=== PATIENT | female | born 1935 | race Caucasian/White ===

== ENCOUNTER 2017-12-11 08:39 | Inpatient (IN) | payer MEDICARE ==
[~2017-12-11] VITALS: Ht 160 cm; Wt 100.0 kg
[~2017-12-11 08:39] MED LIST: ALEN70TA3 PO; CAR30T PO; COU5T PO; ERGO500014 PO; FLEC50TA MT; LEVO75TA57 PO; POTA10TA10 PO; ZOC40T PO
[2017-12-11] MEDS ORDERED: normal saline 1000ML IV soln IV ONE (09:05)
[2017-12-11] MEDS ORDERED: ondansetron/PF 4mg/2ml inj IV ONE (09:40)
[2017-12-11 09:56] LABS: BASOPHILS % (AUTO) 0.3 % (0-1); EOSINOPHILS % (AUTO) 0.3 % (0-6); HEMATOCRIT 39.9 % (35.0-45.0); HEMOGLOBIN 13.7 g/dl (12.0-16.0); LYMPHOCYTES # (AUTO) 0.7 X10'3 (1.1-4.8); LYMPHOCYTES % (AUTO) 5.5 % (21-51); MEAN CORPUSCULAR HEMOGLOBIN 33.3 PG (27.0-31.0); MEAN CORPUSCULAR HGB CONC 34.4 % (33.0-36.5); MEAN CORPUSCULAR VOLUME 96.7 FL (78-98); MEAN PLATELET VOLUME 9.8 FL (7.4-10.4); MONOCYTES # (AUTO) 0.6 X10'3 (0-0.9); MONOCYTES % (AUTO) 4.9 % (2-12); NEUTROPHILS # (AUTO) 10.6 X10'3 (1.8-7.7); PLATELET COUNT 172 X10'3 (140-440); RED BLOOD COUNT 4.12 X10'6 (4.20-5.60); RED CELL DISTRIBUTION WIDTH 13.4 % (11.5-14.5); WHITE BLOOD COUNT 11.9 X10'3 (4.5-11.0)
[2017-12-11] MEDS ORDERED: acetaminophen 325mg tablet PO ONE (10:05)
[2017-12-11 10:06] LABS: ALANINE AMINOTRANSFERASE 24 U/L (12-78); ALBUMIN 3.9 G/DL (3.4-5.0); ALBUMIN/GLOBULIN RATIO 1.2 (1.1-1.5); ALKALINE PHOSPHATASE 84 IU/L (46-116); ANION GAP 10 (8-16); ASPARTATE AMINO TRANSFERASE 23 U/L (10-37); BILIRUBIN,TOTAL 0.5 MG/DL (0.1-1.0); BLOOD UREA NITROGEN 25 MG/DL (7-18); BUN/CREATININE RATIO 20.8 (6.6-38.0); CALCIUM 8.9 MG/DL (8.5-10.1); CHLORIDE 105 MMOL/L (99-107); GLUCOSE 133 MG/DL (70-104); PARTIAL THROMBOPLASTIN TIME 24 SECONDS (22-32); SODIUM 142 MMOL/L (135-145); TOTAL CARBON DIOXIDE 26.9 MMOL/L (24-32); TOTAL PROTEIN 7.2 G/DL (6.4-8.2); eGFR 43 ML/MIN
[2017-12-11] MEDS ORDERED: metroNIDAZOLE-Flagyl 500mg/NS 100 ML IV STA (11:04)
[2017-12-11] MEDS ORDERED: ciprofloxacin lact 400MG/200ML 200 ML IV SCH (11:05)
[2017-12-11 12:04] LABS: CLARITY,URINE CLEAR (Clear); COLOR,URINE YELLOW (Yellow); GLUCOSE, URINE NEGATIVE (Neg); KETONES,URINE TRACE mg/dl (Neg); LEUKOCYTE ESTERASE ,URINE NEGATIVE (Neg); NITRITES, URINE NEGATIVE (Neg); OCCULT BLOOD,URINE LARGE (Neg); PROTEIN,URINE NEGATIVE (Neg); UROBILINOGEN,URINE 0.2 E.U/dL (0.2-1.0)
[2017-12-11 12:12] LABS: UA COLLECTION TYPE OTHER
[2017-12-11 12:17] LABS: AMORPHOUS URATES 1+; BACTERIA,URINE 1+ /HPF (Neg); SQUAMOUS EPITHELIAL CELL,UR FEW /LPF (FEW); WBC,URINE 0-4 /HPF (0-4)
[2017-12-11] MEDS ORDERED: magnesium 1gm/100ml D5W IVPB 100 ML IV PRN (12:25)
[2017-12-11] MEDS ORDERED: dextrose ORAL solution 15 GM/59 ML bottle PO PRN ×2 (12:25)
[2017-12-11] MEDS ORDERED: insulin Lispro (HumaLOG) vial - multi-dose SQ SCH (12:25)
[2017-12-11] MEDS ORDERED: glucagon, human recombinant 1mg kit SUBCUT PRN (12:25)
[2017-12-11] MEDS ORDERED: potassium Cl 20 mEq SR tablet PO PRN ×2 (12:25)
[2017-12-11] MEDS ORDERED: magnesium hydroxide 30ml (MOM) UD suspension PO PRN (12:25)
[2017-12-11] MEDS ORDERED: dextrose 50%-water 50ml dispensing syringe IV PRN ×2 (12:25)
[2017-12-11] MEDS ORDERED: mag hydrox/Alum hydrox/simeth 30ml oral suspension PO PRN (12:25)
[2017-12-11] MEDS ORDERED: potassium Cl 40MEQ/NS 500ml 500 ML IV PRN ×2 (12:25)
[2017-12-11] MEDS ORDERED: magnesium 4gm in 100ml NS 100 ML IV PRN (12:25)
[2017-12-11] MEDS ORDERED: acetaminophen 325mg tablet PO PRN (12:25)
[2017-12-11] MEDS ORDERED: MESSAGE TO PHARMACY PO ONE (12:25)
[2017-12-11 13:51] LABS: BASOPHILS % (AUTO) 0.4 % (0-1); EOSINOPHILS % (AUTO) 0.2 % (0-6); HEMATOCRIT 34.1 % (35.0-45.0); HEMOGLOBIN 11.4 g/dl (12.0-16.0); LYMPHOCYTES # (AUTO) 0.6 X10'3 (1.1-4.8); LYMPHOCYTES % (AUTO) 5.1 % (21-51); MEAN CORPUSCULAR HEMOGLOBIN 32.3 PG (27.0-31.0); MEAN CORPUSCULAR HGB CONC 33.5 % (33.0-36.5); MEAN CORPUSCULAR VOLUME 96.5 FL (78-98); MEAN PLATELET VOLUME 9.2 FL (7.4-10.4); MONOCYTES # (AUTO) 0.5 X10'3 (0-0.9); NEUTROPHILS # (AUTO) 10.5 X10'3 (1.8-7.7); NEUTROPHILS % (AUTO) 90.3 % (42-75); PLATELET COUNT 150 X10'3 (140-440); RED BLOOD COUNT 3.54 X10'6 (4.20-5.60); RED CELL DISTRIBUTION WIDTH 13.3 % (11.5-14.5); WHITE BLOOD COUNT 11.6 X10'3 (4.5-11.0)
[2017-12-11] MEDS: acetaminophen 325mg tablet PO PRN (14:50)
[2017-12-11] MEDS: normal saline 1000ml 1,000 ML IV SCH ×2 (15:01→23:51)
[2017-12-11 15:14] VITALS: BP 148/62
[2017-12-11] MEDS: metroNIDAZOLE-Flagyl 500mg/NS 100 ML IV SCH ×2 (16:54→23:51)
[2017-12-11] MEDS ORDERED: ASPI-1265 PO (17:29)
[2017-12-11] MEDS ORDERED: ATOR40TA PO (17:30)
[2017-12-11] MEDS ORDERED: LISI-600 PO (17:31)
[2017-12-11] MEDS ORDERED: AMIO200T40 PO (17:31)
[2017-12-11 19:30] VITALS: BP 145/47
[2017-12-11] MEDS ORDERED: ALENDRONATE SODIUM 70 MG PO SCH (20:00)
[2017-12-11] MEDS: ciprofloxacin/D5W 200mg/100mL 100 ML IV SCH (20:24)
[2017-12-11 20:47] LABS: BASOPHILS % (AUTO) 0.2 % (0-1); EOSINOPHILS # (AUTO) 0.1 X10'3 (0-0.9); EOSINOPHILS % (AUTO) 0.8 % (0-6); HEMATOCRIT 34.1 % (35.0-45.0); HEMOGLOBIN 11.6 g/dl (12.0-16.0); LYMPHOCYTES # (AUTO) 0.7 X10'3 (1.1-4.8); LYMPHOCYTES % (AUTO) 6.1 % (21-51); MEAN CORPUSCULAR HEMOGLOBIN 32.9 PG (27.0-31.0); MEAN CORPUSCULAR HGB CONC 34.1 % (33.0-36.5); MEAN CORPUSCULAR VOLUME 96.4 FL (78-98); MEAN PLATELET VOLUME 9.5 FL (7.4-10.4); MONOCYTES # (AUTO) 1.5 X10'3 (0-0.9); MONOCYTES % (AUTO) 13.9 % (2-12); NEUTROPHILS # (AUTO) 8.4 X10'3 (1.8-7.7); PLATELET COUNT 103 X10'3 (140-440); RED BLOOD COUNT 3.54 X10'6 (4.20-5.60); RED CELL DISTRIBUTION WIDTH 13.7 % (11.5-14.5); WHITE BLOOD COUNT 10.7 X10'3 (4.5-11.0)
[2017-12-11] MEDS: insulin glargine (Lantus) pen - multi-dose SQ SCH (21:00)
[2017-12-11] MEDS: traMADol 50MG tablet PO PRN (21:48)
[2017-12-11 23:30] VITALS: BP 139/51
[2017-12-12] MEDS: ondansetron/PF 4mg/2ml inj IV PRN ×3 (02:43→19:54)
[2017-12-12 06:33] LABS: BASOPHILS % (AUTO) 0 % (0-1); EOSINOPHILS % (AUTO) 0.3 % (0-6); HEMATOCRIT 33.2 % (35.0-45.0); HEMOGLOBIN 11.3 g/dl (12.0-16.0); LYMPHOCYTES # (AUTO) 0.6 X10'3 (1.1-4.8); LYMPHOCYTES % (AUTO) 5.6 % (21-51); MEAN CORPUSCULAR HEMOGLOBIN 32.7 PG (27.0-31.0); MEAN CORPUSCULAR VOLUME 96.3 FL (78-98); MEAN PLATELET VOLUME 9.8 FL (7.4-10.4); MONOCYTES # (AUTO) 0.8 X10'3 (0-0.9); MONOCYTES % (AUTO) 7.4 % (2-12); NEUTROPHILS # (AUTO) 9.5 X10'3 (1.8-7.7); NEUTROPHILS % (AUTO) 86.7 % (42-75); PLATELET COUNT 141 X10'3 (140-440); RED BLOOD COUNT 3.45 X10'6 (4.20-5.60); RED CELL DISTRIBUTION WIDTH 13.8 % (11.5-14.5); WHITE BLOOD COUNT 10.9 X10'3 (4.5-11.0)
[2017-12-12 07:05] LABS: ALANINE AMINOTRANSFERASE 12 U/L (12-78); ALBUMIN 2.8 G/DL (3.4-5.0); ALKALINE PHOSPHATASE 55 IU/L (46-116); ANION GAP 10 (8-16); ASPARTATE AMINO TRANSFERASE 18 U/L (10-37); BILIRUBIN,TOTAL 0.6 MG/DL (0.1-1.0); BLOOD UREA NITROGEN 13 MG/DL (7-18); BUN/CREATININE RATIO 15.1 (6.6-38.0); CALCIUM 7.9 MG/DL (8.5-10.1); CHLORIDE 109 MMOL/L (99-107); CHOL/HDL RATIO 1.7 (0.00-4.99); CHOLESTEROL 115 MG/DL (0-200); CREATININE 0.86 MG/DL (0.40-0.90); GLUCOSE 116 MG/DL (70-104); HDL CHOLESTEROL 66 MG/DL (35-60); LDL CHOLESTEROL 40 MG/DL (50-100); MAGNESIUM 1.8 MG/DL (1.5-2.4); POTASSIUM 3.8 MMOL/L (3.5-5.1); SODIUM 143 MMOL/L (135-145); TOTAL CARBON DIOXIDE 23.9 MMOL/L (24-32); TOTAL PROTEIN 5.6 G/DL (6.4-8.2); TRIGLYCERIDES 50 MG/DL (20-135); eGFR 63 ML/MIN
[2017-12-12 07:45] VITALS: BP 129/41
[2017-12-12] MEDS: K and/or MAG REPLACEMENT MC SCH (08:00)
[2017-12-12] MEDS: levoTHYROXINE 75mcg tablet PO SCH (08:13)
[2017-12-12] MEDS: atorvastatin 20mg tablet PO SCH (08:13)
[2017-12-12] MEDS: amiodarone 200mg tablet PO SCH (08:14)
[2017-12-12] MEDS: ciprofloxacin/D5W 200mg/100mL 100 ML IV SCH ×2 (08:14→19:54)
[2017-12-12] MEDS: lisinopril 20mg tablet PO SCH (08:14)
[2017-12-12] MEDS: traMADol 50MG tablet PO PRN (08:15)
[2017-12-12] MEDS: normal saline 1000ml 1,000 ML IV SCH ×2 (08:23→14:24)
[2017-12-12] MEDS: metroNIDAZOLE-Flagyl 500mg/NS 100 ML IV SCH ×3 (09:18→23:12)
[2017-12-12] MEDS ORDERED: proCHLORperazine 10 MG/2 ml inj IV PRN (10:05)
[2017-12-12 11:56] VITALS: BP 148/47
[2017-12-12] MEDS ORDERED: salt irrigation nasal spray 45 ML SPRAY NS PRN (15:40)
[2017-12-12] MEDS ORDERED: traMADol 50MG tablet PO PRN (15:40)
[2017-12-12 19:00] VITALS: BP 146/61
[2017-12-12] MEDS: NUT.TX.GLUC.INTOLER,LAC-FR,SOY (GLUCERNA) 237 ML PO SCH (19:54)
[2017-12-12] MEDS: insulin glargine (Lantus) pen - multi-dose SQ SCH (23:05)
[2017-12-12 23:23] VITALS: BP 156/8
[2017-12-13] MEDS: normal saline 1000ml 1,000 ML IV SCH (02:46)
[2017-12-13 05:43] LABS: BASOPHILS # (AUTO) 0.1 X10'3 (0-0.2); BASOPHILS % (AUTO) 0.5 % (0-1); EOSINOPHILS # (AUTO) 0.1 X10'3 (0-0.9); EOSINOPHILS % (AUTO) 0.9 % (0-6); HEMATOCRIT 31.5 % (35.0-45.0); HEMOGLOBIN 11.1 g/dl (12.0-16.0); LYMPHOCYTES # (AUTO) 1.1 X10'3 (1.1-4.8); LYMPHOCYTES % (AUTO) 9.7 % (21-51); MEAN CORPUSCULAR HEMOGLOBIN 33.7 PG (27.0-31.0); MEAN CORPUSCULAR HGB CONC 35.1 % (33.0-36.5); MEAN CORPUSCULAR VOLUME 96.1 FL (78-98); MEAN PLATELET VOLUME 9.6 FL (7.4-10.4); MONOCYTES # (AUTO) 0.9 X10'3 (0-0.9); MONOCYTES % (AUTO) 8.4 % (2-12); NEUTROPHILS # (AUTO) 8.6 X10'3 (1.8-7.7); NEUTROPHILS % (AUTO) 80.5 % (42-75); PLATELET COUNT 126 X10'3 (140-440); RED BLOOD COUNT 3.28 X10'6 (4.20-5.60); RED CELL DISTRIBUTION WIDTH 13.8 % (11.5-14.5); WHITE BLOOD COUNT 10.8 X10'3 (4.5-11.0)
[2017-12-13 06:03] LABS: ALANINE AMINOTRANSFERASE 13 U/L (12-78); ALBUMIN 2.7 G/DL (3.4-5.0); ALBUMIN/GLOBULIN RATIO 0.9 (1.1-1.5); ALKALINE PHOSPHATASE 56 IU/L (46-116); ANION GAP 8 (8-16); ASPARTATE AMINO TRANSFERASE 16 U/L (10-37); BILIRUBIN,TOTAL 0.6 MG/DL (0.1-1.0); BLOOD UREA NITROGEN 8 MG/DL (7-18); BUN/CREATININE RATIO 9.1 (6.6-38.0); CALCIUM 8.3 MG/DL (8.5-10.1); CHLORIDE 108 MMOL/L (99-107); CREATININE 0.88 MG/DL (0.40-0.90); GLUCOSE 110 MG/DL (70-104); MAGNESIUM 1.8 MG/DL (1.5-2.4); POTASSIUM 3.6 MMOL/L (3.5-5.1); SODIUM 141 MMOL/L (135-145); TOTAL PROTEIN 5.6 G/DL (6.4-8.2); eGFR 61 ML/MIN
[2017-12-13 07:23] VITALS: BP 127/53
[2017-12-13] MEDS: K and/or MAG REPLACEMENT MC SCH (07:44)
[2017-12-13] MEDS: ciprofloxacin/D5W 200mg/100mL 100 ML IV SCH (07:53)
[2017-12-13] MEDS: metroNIDAZOLE-Flagyl 500mg/NS 100 ML IV SCH (07:53)
[2017-12-13] MEDS: amiodarone 200mg tablet PO SCH (07:54)
[2017-12-13] MEDS: levoTHYROXINE 75mcg tablet PO SCH (07:55)
[2017-12-13] MEDS: lisinopril 20mg tablet PO SCH (07:57)
[2017-12-13] MEDS: atorvastatin 20mg tablet PO SCH (07:57)
[2017-12-13] MEDS ORDERED: fluticasone nasal spray 16GM bottle NS SCH (08:00)
[2017-12-13] MEDS: NUT.TX.GLUC.INTOLER,LAC-FR,SOY (GLUCERNA) 237 ML PO SCH (08:00)
[2017-12-13] MEDS: acetaminophen 325mg tablet PO PRN (09:30)
[2017-12-13] MEDS ORDERED: CIPR-230 PO (11:24)
[2017-12-13] MEDS ORDERED: TRAM50TA2 PO (11:24)
[2017-12-13] MEDS ORDERED: METR500T PO (11:24)
[2017-12-13] MEDS ORDERED: ONDA4TAB12 PO (11:24)
[2017-12-17 09:43] LABS: OCCULT BLOOD STOOL POSITIVE (Neg)
== END 2017-12-13 12:56 | disposition home or self-care (01) | DRG 392 ==
LOC: ER 08:40 → ED HOLD 12:23 → SUR 3N 14:31
PROVIDERS: ADMIT Family Medicine; ATTEND Family Medicine
DX: A09 Infectious gastroenteritis and colitis, unspecified (principal); D68.69 Other thrombophilia; E87.6 Hypokalemia; E03.9 Hypothyroidism, unspecified; I48.91 Unspecified atrial fibrillation; E11.9 Type 2 diabetes mellitus without complications; E78.00 Pure hypercholesterolemia, unspecified; E78.5 Hyperlipidemia, unspecified; I10 Essential (primary) hypertension; I25.10 Atherosclerotic heart disease of native coronary artery without angina pectoris; N26.1 Atrophy of kidney (terminal); Z90.49 Acquired absence of other specified parts of digestive tract; Z90.710 Acquired absence of both cervix and uterus; Z93.3 Colostomy status; Z95.2 Presence of prosthetic heart valve; Z95.5 Presence of coronary angioplasty implant and graft; Z88.5 Allergy status to narcotic agent; Z79.899 Other long term (current) drug therapy; Z79.83 Long term (current) use of bisphosphonates; Z79.82 Long term (current) use of aspirin; Z85.51 Personal history of malignant neoplasm of bladder; Z80.8 Family history of malignant neoplasm of other organs or systems; Z82.5 Family history of asthma and other chronic lower respiratory diseases
CPT/HCPCS: 36415; 71045; 74176; 80053; 80061; 81001; 82272; 82948; 83036; 83735; 84443; 85025; 85610; 85730; 86885; 86900; 86901; 87070; 93005; 93306; 96361; 96365; 96375; 99285; J0744; J0780; J1815; J2405; J3490; J7030

== ENCOUNTER 2019-01-28 11:01 | Emergency (ER) | payer MEDICARE ==
[~2019-01-28] VITALS: Ht 162.6 cm; Wt 90.0 kg
[~2019-01-28 11:01] MED LIST changes: +AMIO200T61 PO; +ASPI-1265 PO; +ATOR40TA PO; -CAR30T PO; -COU5T PO; -FLEC50TA MT; +LISI-600 PO; +ONDA4TAB12 PO; -POTA10TA10 PO; +TRAM50TA2 PO; -ZOC40T PO
[2019-01-28] MEDS: diatr meglu/diatrizoate 30ml oral sol.-(3 dose) bottle PO SCH ×3 (11:35→13:05)
[2019-01-28] MEDS ORDERED: normal saline 1000ML IV soln IVB ONE ×2 (11:35→13:30)
[2019-01-28] MEDS ORDERED: ondansetron/PF 4mg/2ml inj IV ONE (11:35)
[2019-01-28] MEDS: morphine 4 MG/ML inj SYRINge IV PRN ×2 (11:58→12:30)
[2019-01-28 12:01] LABS: BASOPHILS # (AUTO) 0.1 X10'3 (0-0.2); BASOPHILS % (AUTO) 0.9 % (0-1); EOSINOPHILS # (AUTO) 0.1 X10'3 (0-0.9); EOSINOPHILS % (AUTO) 1.2 % (0-6); HEMOGLOBIN 13.9 g/dl (12.0-16.0); LYMPHOCYTES # (AUTO) 1.1 X10'3 (1.1-4.8); LYMPHOCYTES % (AUTO) 16.8 % (21-51); MEAN CORPUSCULAR HEMOGLOBIN 32.9 PG (27.0-31.0); MEAN CORPUSCULAR HGB CONC 33.9 g/dL (33.0-36.5); MEAN PLATELET VOLUME 8.8 FL (7.4-10.4); MONOCYTES # (AUTO) 0.6 X10'3 (0-0.9); MONOCYTES % (AUTO) 8.8 % (2-12); NEUTROPHILS # (AUTO) 4.7 X10'3 (1.8-7.7); NEUTROPHILS % (AUTO) 72.3 % (42-75); PLATELET COUNT 195 X10'3 (140-440); RED BLOOD COUNT 4.23 X10'6 (4.20-5.60); RED CELL DISTRIBUTION WIDTH 14.3 % (11.5-14.5); WHITE BLOOD COUNT 6.5 X10'3 (4.5-11.0)
[2019-01-28 12:17] LABS: ALANINE AMINOTRANSFERASE 22 U/L (12-78); ALBUMIN 4.2 G/DL (3.4-5.0); ALBUMIN/GLOBULIN RATIO 1.2 (1.1-1.5); ALKALINE PHOSPHATASE 84 IU/L (46-116); ANION GAP 10 (8-16); ASPARTATE AMINO TRANSFERASE 20 U/L (10-37); BILIRUBIN,TOTAL 0.5 MG/DL (0.1-1.0); BLOOD UREA NITROGEN 13 MG/DL (7-18); BUN/CREATININE RATIO 12.4 (6.6-38.0); CALCIUM 9.4 MG/DL (8.5-10.1); CHLORIDE 103 MMOL/L (99-107); CREATININE 1.05 MG/DL (0.40-0.90); GLUCOSE 138 MG/DL (70-104); POTASSIUM 4.3 MMOL/L (3.5-5.1); SODIUM 139 MMOL/L (135-145); TOTAL CARBON DIOXIDE 26.5 MMOL/L (24-32); TOTAL PROTEIN 7.8 G/DL (6.4-8.2); eGFR 50 ML/MIN
[2019-01-28] MEDS ORDERED: iohexol 300mg/ml 100ml inj. ONE (12:26)
--- NOTE | 2019-01-28 13:20 | NUR ---
Patient back from CT scan via wheelchair.
[2019-01-28 13:36] LABS: CLARITY,URINE CLEAR (Clear); COLOR,URINE YELLOW (Yellow); GLUCOSE, URINE NEGATIVE (Neg); KETONES,URINE NEGATIVE (Neg); LEUKOCYTE ESTERASE ,URINE MODERATE (Neg); NITRITES, URINE NEGATIVE (Neg); OCCULT BLOOD,URINE LARGE (Neg); PROTEIN,URINE NEGATIVE (Neg); UROBILINOGEN,URINE 0.2 E.U/dL (0.2-1.0)
[2019-01-28 13:44] LABS: UA COLLECTION TYPE CLN CATCH MIDSTREAM
[2019-01-28 13:46] LABS: BACTERIA,URINE 3+ /HPF (Neg); RBC,URINE 50-100 /HPF (0-2); WBC,URINE TNTC /HPF (0-4)
[2019-01-28 13:47] LABS: SQUAMOUS EPITHELIAL CELL,UR FEW /LPF (FEW); WBC CLUMPS,URINE MODERATE /HPF (NEGATIVE)
[2019-01-28] MEDS ORDERED: morphine 4 MG/ML inj SYRINge IV ONE (14:00)
[2019-01-28 14:40] VITALS: BP 134/69
[2019-01-29] MEDS ORDERED: SULF1TAB49 PO (13:32)
[2019-01-29] MEDS ORDERED: TRAM50TA2 PO (13:33)
== END 2019-01-28 14:34 | disposition home or self-care (01) ==
LOC: ER 11:01
DX: K43.2 Incisional hernia without obstruction or gangrene (principal); I48.91 Unspecified atrial fibrillation; I25.10 Atherosclerotic heart disease of native coronary artery without angina pectoris; E78.00 Pure hypercholesterolemia, unspecified; I10 Essential (primary) hypertension; E11.9 Type 2 diabetes mellitus without complications; M81.0 Age-related osteoporosis without current pathological fracture; Z88.6 Allergy status to analgesic agent; Z79.899 Other long term (current) drug therapy; Z79.82 Long term (current) use of aspirin; Z90.49 Acquired absence of other specified parts of digestive tract; Z90.710 Acquired absence of both cervix and uterus; Z90.89 Acquired absence of other organs; Z98.890 Other specified postprocedural states; Z98.61 Coronary angioplasty status; Z90.5 Acquired absence of kidney
CPT/HCPCS: 36415; 74177; 80053; 81001; 85025; 87077; 87088; 87186; 96374; 96375; 96376; 99284; J2270; J2405; J7030; Q9963; Q9967

== ENCOUNTER 2019-01-29 13:17 | Inpatient (IN) | payer MEDICARE ==
[2019-01-29] VITALS (13 sets, daily range): BP systolic 85–107; BP diastolic 30–65
[~2019-01-29] VITALS: Ht 149.9 cm; Wt 102.8 kg
[2019-01-29] MEDS ORDERED: SULF1TAB49 PO (13:32)
[2019-01-29] MEDS ORDERED: TRAM50TA2 PO (13:33)
[2019-01-29] MEDS ORDERED: ondansetron 4mg rapidly disintigrating tab PO ONE (13:40)
[2019-01-29] MEDS ORDERED: traMADol 50MG tablet PO ONE (13:40)
[2019-01-29] MEDS ORDERED: morphine 4 MG/ML inj SYRINge IV PRN ×3 (14:30→20:15)
[2019-01-29] MEDS ORDERED: normal saline 1000ML IV soln IVB ONE (14:30)
[2019-01-29] MEDS ORDERED: ondansetron/PF 4mg/2ml inj IV ONE (14:30)
[2019-01-29] MEDS: normal saline 1000ml 1,000 ML IV SCH (14:52)
[2019-01-29] MEDS ORDERED: magnesium hydroxide 30ml (MOM) UD suspension PO PRN (14:55)
[2019-01-29] MEDS ORDERED: morphine 2 MG/ML inj. syringe IV PRN ×2 (14:55)
[2019-01-29] MEDS ORDERED: mag hydrox/Alum hydrox/simeth 30ml oral suspension PO PRN (14:55)
[2019-01-29] MEDS ORDERED: acetaminophen 325mg tablet PO PRN (14:55)
[2019-01-29] MEDS ORDERED: CefTRIAXone 2gm/D5W 50ml 50 ML IV ONE (15:00)
[2019-01-29 15:27] LABS: HEMATOCRIT 37.2 % (35.0-45.0); HEMOGLOBIN 12.5 g/dl (12.0-16.0); MEAN CORPUSCULAR HEMOGLOBIN 32.5 PG (27.0-31.0); MEAN CORPUSCULAR HGB CONC 33.7 g/dL (33.0-36.5); MEAN CORPUSCULAR VOLUME 96.5 FL (78-98); PLATELET COUNT 97 X10'3 (140-440); RED BLOOD COUNT 3.86 X10'6 (4.20-5.60); RED CELL DISTRIBUTION WIDTH 14.7 % (11.5-14.5)
[2019-01-29 15:40] LABS: ALANINE AMINOTRANSFERASE 19 U/L (12-78); ALBUMIN 3.1 G/DL (3.4-5.0); ALKALINE PHOSPHATASE 192 IU/L (46-116); ANION GAP 11 (8-16); ASPARTATE AMINO TRANSFERASE 30 U/L (10-37); BILIRUBIN,TOTAL 1.1 MG/DL (0.1-1.0); BLOOD UREA NITROGEN 20 MG/DL (7-18); BUN/CREATININE RATIO 12.8 (6.6-38.0); CALCIUM 8.7 MG/DL (8.5-10.1); CHLORIDE 104 MMOL/L (99-107); CREATININE 1.56 MG/DL (0.40-0.90); GLUCOSE 93 MG/DL (70-104); POTASSIUM 3.4 MMOL/L (3.5-5.1); SODIUM 139 MMOL/L (135-145); TOTAL CARBON DIOXIDE 23.6 MMOL/L (24-32); TOTAL PROTEIN 6.2 G/DL (6.4-8.2); eGFR 32 ML/MIN
[2019-01-29] MEDS ORDERED: normal saline 1000ML IV soln IV ONE (15:55)
[2019-01-29 15:58] LABS: NUCLEATED RED BLOOD CELLS 1 /100WBC (0-0); TOTAL CELLS COUNTED 100
[2019-01-29 15:59] LABS: LARGE PLATELETS FEW; PLATELET ESTIMATE DECREASED; SMUDGE CELLS FEW
[2019-01-29] MEDS ORDERED: magnesium 2GM in 50ml NS 50 ML IV ONE (16:45)
[2019-01-29] MEDS ORDERED: potassium Cl 10 mEq/100mL bag IV ONE (16:45)
[2019-01-29 16:46] LABS: ABG BASE EXCESS -7.6 mmol/L (-2.0-3.0); ABG HCO3 17.9 mmol/L (22.0-26.0); ABG OXYGEN SATURATION 92.1 % (95-98); ABG PH (T) 7.304 (7.350-7.450); ABG PO2 (T) 69.9 mmHg (83-108); ALLEN'S TEST Positive; FCOHb 0.9 % (0.5-1.5); FLOW 2 L/min; FMetHb 0.1 % (0.3-1.12); FO2Hb 91.2 % (94-100); PATIENT TEMPERATURE 37.2; RESPIRATORY RATE (OBSERVED) 30 b/min; TOTAL HEMOGLOBIN 11.7 G/dl (12.0-16.0)
[2019-01-29 17:16] LABS: MAGNESIUM 1.6 MG/DL (1.5-2.4); PHOSPHORUS 2.9 MG/DL (2.3-4.5)
[2019-01-29] MEDS ORDERED: acetaminophen 325mg tablet PO ONE (17:25)
[2019-01-29 17:34] LABS: CLARITY,URINE SLIGHTLY CLOUDY (Clear); COLOR,URINE YELLOW (Yellow); GLUCOSE, URINE NEGATIVE (Neg); KETONES,URINE NEGATIVE (Neg); LEUKOCYTE ESTERASE ,URINE SMALL (Neg); NITRITES, URINE NEGATIVE (Neg); OCCULT BLOOD,URINE LARGE (Neg); PH,URINE 5.5 (4.8-8.0); PROTEIN,URINE 30 mg/dl (Neg); UA COLLECTION TYPE FOLEY CATH; UROBILINOGEN,URINE 0.2 E.U/dL (0.2-1.0)
[2019-01-29 17:47] LABS: WBC,URINE 30-50 /HPF (0-4)
[2019-01-29 17:48] LABS: BACTERIA,URINE 3+ /HPF (Neg); MUCUS STRANDS NONE SEEN /LPF (Neg); SQUAMOUS EPITHELIAL CELL,UR NONE SEEN /LPF (FEW)
[2019-01-29] MEDS ORDERED: ePHEDrine 50MG/ML INJ. ONE (19:10)
[2019-01-29] MEDS ORDERED: fentaNYL/PF 50MCG/1 ML 2ML syringe ONE (19:20)
[2019-01-29] MEDS ORDERED: midazolam 2 mg/2 ml injection ONE (19:21)
[2019-01-29] MEDS ORDERED: propofol inj 20 ML IV ONE (19:42)
[2019-01-29] MEDS ORDERED: LIDOcaine 2% (20mg/ml) 5ml vial ONE (19:42)
--- NOTE | 2019-01-29 20:02 | NUR ---
Received from OR via BED accompanied by Anesthesiologist DR CALVIN and report given by Anesthesiologist. PT DROWSY, DENIES PAIN, MURRIETA CATHETER W/PINK CLOUDY URINE TO GRAVITY DRAINAGE. Addendum: 01/29/19 at 2055 by Loretta Charlton RN Amended: Links added.
[2019-01-29] MEDS ORDERED: ringers solution, lacted 1,000 ML IV SCH (20:13)
[2019-01-29] MEDS ORDERED: proCHLORperazine 10 MG/2 ml inj IV PRN (20:15)
[2019-01-29] MEDS ORDERED: ondansetron/PF 4mg/2ml inj IV PRN (20:15)
[2019-01-29] MEDS ORDERED: meperidine/PF 25mg/ml syringe IV PRN ×3 (20:15)
[2019-01-29] MEDS ORDERED: ipratropium/albuterol 3ml nebule IH ONE (20:30)
--- NOTE | 2019-01-29 21:22 | NUR ---
Report called to receiving nurse. Transferred via BED ON , DENTURES ONLY SENT W/PT TO ROOM 2039, ALL OTHER Belongings SENT HOME W/PTS DAUGHTER, RECEIVING RN AT BEDSIDE TO RECEIVE PT. Special Issues communicated to receiving nurse. YES. Addendum: 01/29/19 at 2137 by Loretta Charlton RN Amended: Links added.
--- NOTE | 2019-01-29 21:30 | NUR ---
assumed care from crna Jane, no questions or concerns after assuming care
--- NOTE | 2019-01-29 21:35 | NUR ---
PATIENTS DENTURES WERE THE ONLY PERSONAL BELONGINGS THAT CAME WITH POLICE DETECTIVE, POLICE DETECTIVE STATES " DAUGHTER TOOK ALL OTHER ITEMS HOME.
--- NOTE | 2019-01-29 23:19 | NUR ---
PATIENT IN BED ON LEFT SIDE APPEARS TO BE RESTING COMFORTABLY AFTER 1MG MORPHINE RR EVEN UN LABORED NO OBSERVABLE S/S OF ACUTE STRESS AT THIS TIME WILL CONTINUE TO MONITOR
[2019-01-29] MEDS: tamsulosin 0.4mg capsule PO SCH (23:26)
[2019-01-30] VITALS (24 sets, daily range): BP systolic 70–110; BP diastolic 33–58
--- NOTE | 2019-01-30 00:16 | NUR ---
SPOKE WITH MARISOL ALANIS ABOUT PATIENTS MAP SLOWLY TRENDING OF A MAP<60, ZEKE GAVE ME A TELEPHON ORDER FOR ALBUMIN 5% WILL CONTINUE TO MONITOR
[2019-01-30] MEDS ORDERED: albumin (Human) 5% 250ml 250 ML IV ONE (00:20)
[2019-01-30] MEDS: ondansetron/PF 4mg/2ml inj IV PRN ×2 (00:46→13:22)
--- NOTE | 2019-01-30 01:06 | NUR ---
ZEKE KNOWS OF PATIENTS HYPOTENSION ALBUMIN ALMOST FINISHED MARISOL ALANIS VERBALIZED POSSIBLY NOR EPI FOR INFUSION, PATIENT HAS A PIV ONLY ZEKE AWARE, WILL EVALUATE AND CALL MARISOL ALANIS AFTER ALBUMIN FINISHES
--- NOTE | 2019-01-30 01:15 | NUR ---
CALLED MARISOL ALANIS DUE TO NO IMPROVEMENT WITH PATIENTS B/P WITH THE ALBUMIN, PER PROVIDER "ZEKE" WITH LIMITED IV ACCESS ZEKE OVER TELEPHONE ORDER TO "START 1-2 MCG OF NOREPINEPHRINE THROUGH PIV AND TO KEEP CLOSE EYE ON IV SITE."
[2019-01-30] MEDS: NORepinephrine 8mg/ 250ml NS 250 ML IV SCH ×4 (01:26→22:20)
[2019-01-30] MEDS: normal saline 1000ml 1,000 ML IV SCH ×2 (01:27→10:52)
--- NOTE | 2019-01-30 01:52 | NUR ---
PATIENT C/O ABDOMINAL PAIN, FLUSHED CATHETER DUE TO POSSIBLE CLOT CAUSING RETENTION PAIN, URINE FLOWED EASILY AFTER IRRIGATION WITH STERILE WATER, NO S/S OF CATHETER BEING OBSTRUCTED
--- NOTE | 2019-01-30 02:22 | NUR ---
CALLED MARISOL ALANIS DUE TO THE PATIENTS B/P HAS NOT IMPROVED WITH 2 MCG OF LEVOPHED, COMFORT ALANIS GAVE ME A TELEPHONE ORDER THAT I MAY TITRATE UP TO 8 MCG WITH PATIENTS PIV, BEFORE WE NEED TO CONSIDER CENTRAL LINE "MARISOL ALANIS."
--- NOTE | 2019-01-30 02:49 | NUR ---
TALKED WITH DILLON MY CN, ABOUT THE LEVOPHED MARISOL ALANIS HAS ME TITRATING AND MY CONCERN THAT PATIENT IS NOT RESPONDING TO THE MEDICATION OR PRODUCING URINE AFTER FLUSHING CATHETER THINKING IT HAD A CLOT WHICH IT DID NOT. DILLON CN CALLED MARISOL ALANIS STATING TO MARISOL,"WE CAN NOT HAVE THAT MEDICATION GOING THROUGH THE PIV." DILLON STATED " MARISOL TOLD ME IS CALLING DR. HERNANDEZ ABOUT THIS."
--- NOTE | 2019-01-30 03:08 | NUR ---
MARISOL ALANIS IN ROOM ASKED HOW MUCH TOTAL FLUID PATIENT HAS RECIEVED THEN WENT TO DESK AND CALLED DR. HERNANDEZ WHICH IN TURN VERBALIZED TO SET UP FOR CENTRAL LINE DR. HERNANDEZ WILL BE COMING IN TO PUT CL IN AND TO KEEP LEVO GOING UNTIL CL PLACED
--- NOTE | 2019-01-30 03:44 | NUR ---
DR. HERNANDEZ AT BEDSIDE PUTTING CL IN RIGHT GROIN VIA US.
--- NOTE | 2019-01-30 04:13 | NUR ---
DR. HERNANDEZ AND MARISOL ALANIS AWARE OF PATIENT NOT MAKING URINE
[2019-01-30 05:23] LABS: ALBUMIN 2.5 G/DL (3.4-5.0); ANION GAP 19 (8-16); BLOOD UREA NITROGEN 23 MG/DL (7-18); BUN/CREATININE RATIO 9.3 (6.6-38.0); CALCIUM 7.4 MG/DL (8.5-10.1); CHLORIDE 109 MMOL/L (99-107); CREATININE 2.46 MG/DL (0.40-0.90); GLUCOSE 104 MG/DL (70-104); POTASSIUM 3.3 MMOL/L (3.5-5.1); SODIUM 143 MMOL/L (135-145); eGFR 19 ML/MIN
[2019-01-30 05:30] LABS: TOTAL CARBON DIOXIDE 14.7 MMOL/L (24-32)
[2019-01-30 06:22] LABS: BASOPHILS % (AUTO) 0.1 % (0-1); EOSINOPHILS # (AUTO) 0.1 X10'3 (0-0.9); EOSINOPHILS % (AUTO) 0.4 % (0-6); HEMATOCRIT 31.6 % (35.0-45.0); HEMOGLOBIN 10.3 g/dl (12.0-16.0); LYMPHOCYTES # (AUTO) 0.3 X10'3 (1.1-4.8); MEAN CORPUSCULAR HEMOGLOBIN 32.4 PG (27.0-31.0); MEAN CORPUSCULAR HGB CONC 32.5 g/dL (33.0-36.5); MEAN CORPUSCULAR VOLUME 99.6 FL (78-98); MEAN PLATELET VOLUME 9.5 FL (7.4-10.4); MONOCYTES # (AUTO) 0.8 X10'3 (0-0.9); MONOCYTES % (AUTO) 5.2 % (2-12); NEUTROPHILS # (AUTO) 13.9 X10'3 (1.8-7.7); NEUTROPHILS % (AUTO) 92.3 % (42-75); PLATELET COUNT 90 X10'3 (140-440); RED BLOOD COUNT 3.17 X10'6 (4.20-5.60); RED CELL DISTRIBUTION WIDTH 15.4 % (11.5-14.5)
--- NOTE | 2019-01-30 06:25 | NUR ---
SBAR TO SEBAS ZELAYA NO QUESTIONS OR CONCERNS AFTER ASSUMING CARE
[2019-01-30 06:29] LABS: WHITE BLOOD COUNT 15.1 X10'3 (4.5-11.0)
[2019-01-30 06:32] LABS: ANISOCYTOSIS 1+; NUCLEATED RED BLOOD CELLS 2 /100WBC (0-0); PLATELET ESTIMATE DECREASED; TOTAL CELLS COUNTED 100; TOXIC VACUOLATION 2+
[2019-01-30 06:33] LABS: BURR CELLS 2+; POLYCHROMASIA 1+
[2019-01-30] MEDS: levoTHYROXINE 75mcg tablet PO SCH (07:44)
[2019-01-30] MEDS: aspirin 81mg tab.chew PO SCH (07:45)
[2019-01-30] MEDS: atorvastatin 20mg tablet PO SCH (07:45)
[2019-01-30] MEDS: amiodarone 200mg tablet PO SCH (07:45)
--- NOTE | 2019-01-30 07:55 | NUR ---
Shift Summary: Patient alert and oriented at start of shift, but with mild confusion. AM CO2 14.7 on chemistry panel; per noc RN, no new orders from noc physician real estate legal assistant. During AM, patient required more Levophed, and during AM rounds with Dr. Wilson, orders to titrate Levophed with no maximum and to start Vasopressin. Also at this time, orders for ABG and repeat lactic acid. pH 7.083 with HCO3 at 12.4. Orders for bipap and Bicarb gtt. Patient tolerated bipap for about 2hours before patient became nauseous and vomited into bipap; RN at bedside and able to remove bipap and suction; MD aware. Repeat lactic acids increased to as high as 5.9, MD notified with no new orders; trending down now to 4.3; will recheck next LA in AM. Because patient not tolerating BiPap, Dr. Wilson spoke to family and patient about intubation who agreed to intubate. Patient tolerated well and intubated at 1440; subsequent x-ray showed ett past the kelli; orders per MD to pull out 1cm; no orders to repeat x-ray until AM. Arterial line also placed in right groin and transduced. ABG post-intubation showed pO2 in the 300s on 100% FiO2, orders to reduce FiO2 to 45% and recheck ABG; subsequent ABG pH slightly improving and pO2 107; orders to decrease FiO2 to 35% and increase RR to 24 by using Garza Formula for goal CO2 level of 24-28. Patient report given to Jas ZELAYA with all questions answered.
[2019-01-30] MEDS ORDERED: piperacillin/tazo 3.375gm/50ml 50 ML IV STA (07:58)
[2019-01-30] MEDS: lisinopril 20mg tablet PO SCH (08:00)
[2019-01-30] MEDS: piperacillin/tazo 3.375gm/50ml 50 ML IV SCH ×2 (08:19→16:40)
[2019-01-30 10:39] LABS: CLARITY,URINE TURBID (Clear); COLOR,URINE BROWN (Yellow)
[2019-01-30 10:40] LABS: UA COLLECTION TYPE NON-SPECIFIED
[2019-01-30] MEDS ORDERED: potassium Cl 20 mEq SR tablet PO PRN ×2 (10:40)
[2019-01-30 10:47] LABS: BACTERIA,URINE 3+ /HPF (Neg); MUCUS STRANDS NONE SEEN /LPF (Neg); RBC,URINE TNTC /HPF (0-2); SQUAMOUS EPITHELIAL CELL,UR FEW /LPF (FEW); WBC CLUMPS,URINE FEW /HPF (NEGATIVE); WBC,URINE TNTC /HPF (0-4)
[2019-01-30 10:56] LABS: ABG BASE EXCESS -16.8 mmol/L (-2.0-3.0); ABG HCO3 12.4 mmol/L (22.0-26.0); ABG PH (T) 7.087 (7.350-7.450); ALLEN'S TEST Positive; FCOHb 0.4 % (0.5-1.5); FLOW 2 L/min; FMetHb 0.3 % (0.3-1.12); FO2Hb 94.3 % (94-100); TOTAL HEMOGLOBIN 11.8 G/dl (12.0-16.0)
[2019-01-30] MEDS: vasopressin inj. 20 UNIT in normal saline 100ml IV soln 39 ML IV SCH ×2 (10:56→16:40)
[2019-01-30 11:05] LABS: OXYGEN SATURATION (MIXED VEN) 71.4 % (60-80)
[2019-01-30 11:11] LABS: UA EOSINOPHILS NO EOS /HPF
--- NOTE | 2019-01-30 11:12 | NUR ---
Malnutrition consult: Pt admit w/ R flank pain and nausea found to have R hydronephrosis secondary to 9mm calculus at R uretal-pelvic junction; s/p R ureteral stent per MD note. Transferred to ICU post-op r/t hypotension w/ MAP less than 60 DX UTI, sepsis, hypotension as well per MD note. Receiving ALB for hypotension in addition to vasopressin and norepinephrine w/ MAP 58 this AM. Abdominal pain noted this AM per EMR. Pt placed on full liquids post-op w/ PO pending; likely not stable enough for PO at this time. At this time pt has no severe weakness, stable scaled wt hx from prior admit in September, no edema/wounds, and appears well-nourished per EMR MD note, and does not meet minimum malnutrition criteria. Hx T2DM A1C 6.0 10/2017; will need new A1C this admit once stable. Will continue to monitor for ONS needs this admit pending PO hx and pt stability. Rec: 1. advance diet per MD to carb controlled/heart healthy 2. monitor for ONS needs pending PO hx 3. A1C per MD; last 10/2017 4. weekly wts Addendum: 01/30/19 at [address] Amended: Links added.
[2019-01-30] MEDS: sodium bicarbonate (8.4%) inj. 100 MEQ in dextrose 5%-water 1,000 ML IV SCH ×3 (12:00→23:17)
[2019-01-30] MEDS ORDERED: potassium CL 10mEq/100ml bag 100 ML IV PRN (13:00)
[2019-01-30] MEDS: potassium Cl 20mEq/100mL bag 100 ML IV PRN ×2 (13:22→15:39)
[2019-01-30 14:01] LABS: ABG BASE EXCESS -16.5 mmol/L (-2.0-3.0); ABG HCO3 11.8 mmol/L (22.0-26.0); ABG OXYGEN SATURATION 91.1 % (95-98); ABG PCO2 (T) 36.5 mmHg (35.0-45.0); ABG PH (T) 7.127 (7.350-7.450); ABG PO2 (T) 62.6 mmHg (83-108); FCOHb 0.2 % (0.5-1.5); FLOW 0 L/min; FMetHb 0.1 % (0.3-1.12); FO2Hb 90.8 % (94-100)
[2019-01-30] MEDS ORDERED: etomidate 2mg/ml inj. IV ONE (14:25)
[2019-01-30] MEDS ORDERED: midazolam 2 mg/2 ml injection IV ONE (14:25)
[2019-01-30] MEDS ORDERED: fentaNYL/PF 50MCG/1 ML 2ML syringe IV PRN (14:25)
[2019-01-30] MEDS ORDERED: ipratropium/albuterol 3ml nebule NEB PRN (14:25)
[2019-01-30] MEDS ORDERED: midazolam 2 mg/2 ml injection ONE (14:30)
[2019-01-30] MEDS ORDERED: CefTRIAXone/D5W-Rocephin 1gm 50 ML IV SCH (15:00)
[2019-01-30 15:06] LABS: ABG BASE EXCESS -16.5 mmol/L (-2.0-3.0); ABG HCO3 11.8 mmol/L (22.0-26.0); ABG OXYGEN SATURATION 99.3 % (95-98); ABG PCO2 (T) 36.8 mmHg (35.0-45.0); ABG PH (T) 7.123 (7.350-7.450); ABG PO2 (T) 392.8 mmHg (83-108); FCOHb 0.3 % (0.5-1.5); FLOW 35 L/min; FMetHb 0.1 % (0.3-1.12); FO2Hb 98.9 % (94-100); MINUTE VOLUME 8 L/min; PEEP 5 cm H2O; RESPIRATORY RATE 18 b/min; RESPIRATORY RATE (OBSERVED) 18 b/min; TIDAL VOLUME 400 mL; TOTAL HEMOGLOBIN 11.7 G/dl (12.0-16.0)
[2019-01-30] MEDS: FENTANYL-0.9 % NACL/PF 100 ML IV PRN (15:09)
[2019-01-30] MEDS: midazolam 100mg in NS 100ml 100 ML IV PRN (15:40)
[2019-01-30 16:41] LABS: ABG HCO3 11.6 mmol/L (22.0-26.0); ABG OXYGEN SATURATION 97.6 % (95-98); ABG PCO2 (T) 33.5 mmHg (35.0-45.0); ABG PH (T) 7.157 (7.350-7.450); ABG PO2 (T) 107.3 mmHg (83-108); FCOHb 0.3 % (0.5-1.5); FMetHb 0.2 % (0.3-1.12); FO2Hb 97.1 % (94-100); MINUTE VOLUME 8 L/min; PEEP 5 cm H2O; RESPIRATORY RATE 18 b/min; RESPIRATORY RATE (OBSERVED) 18 b/min; TIDAL VOLUME 400 mL; TOTAL HEMOGLOBIN 11.7 G/dl (12.0-16.0)
[2019-01-30] MEDS: ipratropium/albuterol 3ml nebule NEB SCH ×3 (16:49→23:14)
--- NOTE | 2019-01-30 17:21 | NUR ---
SPO2 MONITOR NOT READING PROPERLY, PTS PO2 IS 107.3 MMHG ON 45%. Addendum: 01/30/19 at 1722 by Mary Delgado RT Amended: Links added.
--- NOTE | 2019-01-30 18:40 | NUR ---
Patient in room ICU 2039. I have received report from Jay ZELAYA, and had the opportunity to ask questions and assume patient care.
--- NOTE | 2019-01-30 19:15 | NUR ---
PT is intubated and mechanically vented tolerating settings well, O2 sat >95%. PT is requiring high dose pressors with Levo @ 44mcg/min and Vasopressin @ 2.4units/hr, will attempts to titrate down as BP tolerated. All vaso active meds are being infused to CVL in RT groin. OG in place to LIS, green drainage noted. Drew in palace with dark carlos/dark red urine noted in tubing. Bed is locked and low. Bilat soft wrist restraints in place and secure. Will continue to monitor.
[2019-01-30] MEDS: tamsulosin 0.4mg capsule PO SCH (20:43)
[2019-01-30] MEDS ORDERED: NORepinephrine 8mg/ 250ml NS 250 ML IV ONE (21:33)
--- NOTE | 2019-01-30 22:33 | NUR ---
PT resting with no s/s of distress noted at this time. Titrating pressors down as PT tolerated. Bed is locked and low. Bilat soft wrist restraints in place and secure. Will continue to monitor.
[2019-01-31] VITALS (24 sets, daily range): BP systolic 89–119; BP diastolic 41–52
[2019-01-31] MEDS: piperacillin/tazo 3.375gm/50ml 50 ML IV SCH ×2 (00:18→07:14)
[2019-01-31] MEDS ORDERED: NORepinephrine 8mg/ 250ml NS 250 ML IV SCH (01:15)
--- NOTE | 2019-01-31 02:30 | NUR ---
PT resting with no s/s of distress noted at this time. Continuing to titrate pressors down as PT tolerated. Bed is locked and low. Bilat soft wrist restraints in place and secure. Will continue to monitor.
[2019-01-31] MEDS: NORepinephrine 8mg/ 250ml NS 250 ML IV SCH ×4 (02:44→20:03)
[2019-01-31 02:45] LABS: BASOPHILS % (AUTO) 0.1 % (0-1); EOSINOPHILS # (AUTO) 0.1 X10'3 (0-0.9); EOSINOPHILS % (AUTO) 0.8 % (0-6); HEMATOCRIT 30.8 % (35.0-45.0); HEMOGLOBIN 10.3 g/dl (12.0-16.0); LYMPHOCYTES # (AUTO) 0.8 X10'3 (1.1-4.8); LYMPHOCYTES % (AUTO) 4.5 % (21-51); MEAN CORPUSCULAR HEMOGLOBIN 32.4 PG (27.0-31.0); MEAN CORPUSCULAR HGB CONC 33.4 g/dL (33.0-36.5); MEAN CORPUSCULAR VOLUME 97.2 FL (78-98); MEAN PLATELET VOLUME 10.3 FL (7.4-10.4); MONOCYTES # (AUTO) 0.8 X10'3 (0-0.9); MONOCYTES % (AUTO) 4.5 % (2-12); NEUTROPHILS # (AUTO) 15.2 X10'3 (1.8-7.7); NEUTROPHILS % (AUTO) 90.1 % (42-75); PLATELET COUNT 54 X10'3 (140-440); RED BLOOD COUNT 3.17 X10'6 (4.20-5.60); RED CELL DISTRIBUTION WIDTH 15.3 % (11.5-14.5); WHITE BLOOD COUNT 16.9 X10'3 (4.5-11.0)
[2019-01-31 02:55] LABS: ALBUMIN 2.1 G/DL (3.4-5.0); ANION GAP 18 (8-16); BLOOD UREA NITROGEN 37 MG/DL (7-18); BUN/CREATININE RATIO 12.3 (6.6-38.0); CALCIUM 6.8 MG/DL (8.5-10.1); CHLORIDE 107 MMOL/L (99-107); CREATININE 3.01 MG/DL (0.40-0.90); GLUCOSE 111 MG/DL (70-104); MAGNESIUM 1.4 MG/DL (1.5-2.4); POTASSIUM 4.6 MMOL/L (3.5-5.1); SODIUM 140 MMOL/L (135-145); TOTAL CARBON DIOXIDE 15.4 MMOL/L (24-32); eGFR 15 ML/MIN
[2019-01-31 03:05] LABS: BANDS% (MANUAL) 29 % (0-10); LYMPHOCYTES % (MANUAL) 2 % (21-51); MONOCYTES % (MANUAL) 8 % (2-12); NEUTROPHILS % (MANUAL) 61 % (42-75); TOTAL CELLS COUNTED 100
[2019-01-31 03:06] LABS: BURR CELLS 2+; LARGE PLATELETS FEW; MICROCYTOSIS 1+; PLATELET ESTIMATE DECREASED; TOXIC VACUOLATION 2+
[2019-01-31] MEDS: ipratropium/albuterol 3ml nebule NEB SCH ×6 (03:25→22:48)
[2019-01-31 03:41] LABS: ABG HCO3 13.2 mmol/L (22.0-26.0); ABG OXYGEN SATURATION 95.4 % (95-98); ABG PCO2 (T) 29.3 mmHg (35.0-45.0); ABG PH (T) 7.277 (7.350-7.450); ABG PO2 (T) 82.6 mmHg (83-108); FCOHb 0.2 % (0.5-1.5); FMetHb 0.1 % (0.3-1.12); FO2Hb 95.1 % (94-100); MINUTE VOLUME 10 L/min; PATIENT TEMPERATURE 37.6; PEEP 5 cm H2O; RESPIRATORY RATE 24 b/min; RESPIRATORY RATE (OBSERVED) 24 b/min; TIDAL VOLUME 400 mL; TOTAL HEMOGLOBIN 11.4 G/dl (12.0-16.0)
[2019-01-31] MEDS: vasopressin inj. 20 UNIT in normal saline 100ml IV soln 39 ML IV SCH (04:15)
--- NOTE | 2019-01-31 06:38 | NUR ---
Problems reprioritized. Patient report given, questions answered & plan of care reviewed with Jay ZELAYA.
[2019-01-31] MEDS: lisinopril 20mg tablet PO SCH (06:50)
[2019-01-31] MEDS: aspirin 81mg tab.chew PO SCH (07:15)
[2019-01-31] MEDS: amiodarone 200mg tablet PO SCH (07:15)
[2019-01-31] MEDS: atorvastatin 20mg tablet PO SCH (07:15)
[2019-01-31] MEDS: levoTHYROXINE 75mcg tablet PO SCH (07:15)
[2019-01-31] MEDS: K and/or MAG REPLACEMENT MC SCH (08:00)
[2019-01-31] MEDS: sodium bicarbonate (8.4%) inj. 100 MEQ in dextrose 5%-water 1,000 ML IV SCH ×2 (10:02→20:18)
--- NOTE | 2019-01-31 10:50 | NUR ---
TF Consult: OGTF to start today per MD; recs below given intubation needs w/ RALPH and sepsis. LBM 01/30. Will monitor for nutrition support tolerance. Malnutrition consult: Pt admit w/ R flank pain and nausea found to have R hydronephrosis secondary to 9mm calculus at R uretal-pelvic junction; s/p R ureteral stent per MD note. Transferred to ICU post-op r/t hypotension w/ MAP less than 60 DX UTI, sepsis, hypotension as well per MD note. Receiving ALB for hypotension in addition to vasopressin and norepinephrine w/ MAP 58 this AM. Abdominal pain noted this AM per EMR. Pt placed on full liquids post-op w/ PO pending; likely not stable enough for PO at this time. At this time pt has no severe weakness, stable scaled wt hx from prior admit in September, no edema/wounds, and appears well-nourished per EMR MD note, and does not meet minimum malnutrition criteria. Hx T2DM A1C 6.0 10/2017; will need new A1C this admit once stable. Will continue to monitor for ONS needs this admit pending PO hx and pt stability. Rec: 1. OGTF per MD using Vital High Protein at 65ml/hr goal; to provide 1560ml fluid, 1560kcals, 1310ml free water, and 137g protein. Initiate at 20ml/hr and advance 20ml Q8 to goal as tolerated. 2. water flush 200ml Q4 3. PALB Q /; daily wts 4. advance diet per MD to carb controlled/heart healthy 5. A1C per MD; last 10/2017 Addendum: 01/31/19 at [address] Amended: Links added.
[2019-01-31] MEDS ORDERED: acetaminophen 325mg tablet OGT PRN (11:13)
[2019-01-31] MEDS ORDERED: magnesium hydroxide 30ml (MOM) UD suspension OGT PRN (11:14)
[2019-01-31] MEDS ORDERED: mag hydrox/Alum hydrox/simeth 30ml oral suspension OGT PRN (11:14)
[2019-01-31] MEDS ORDERED: potassium Cl 20 mEq SR tablet OGT PRN ×2 (11:15)
[2019-01-31] MEDS: CefTRIAXone/D5W-Rocephin 1gm 50 ML IV SCH (11:18)
[2019-01-31] MEDS: FENTANYL-0.9 % NACL/PF 100 ML IV PRN (11:20)
--- NOTE | 2019-01-31 18:30 | NUR ---
Patient in room ICU 2039. I have received report from Jay ZELAYA, and had the opportunity to ask questions and assume patient care.
--- NOTE | 2019-01-31 18:36 | NUR ---
Problems reprioritized. Patient report given, questions answered & plan of care reviewed with Jas ZELAYA.
--- NOTE | 2019-01-31 19:45 | NUR ---
PT is intubated and mechanically vented tolerating settings well, O2 sat >95%. PT is requiring high dose pressors with Levo @ 20mcg/min, will attempts to titrate down as BP tolerated. All vaso active meds are being infused to CVL in RT groin. TF running @ 20mL OG, will attempts to increase as PT tolerates. Drew in palace with light carlos urine noted in tubing. Bed is locked and low. Bilat soft wrist restraints in place and secure. Will continue to monitor.
[2019-01-31] MEDS: lactobacillus rhamnosus 10,000 MMU CELLS/CAPSULE OGT SCH (20:03)
[2019-01-31] MEDS: mineral oil/petrolatum ophthal oint EACHEYE SCH (20:04)
[2019-01-31] MEDS: tamsulosin 0.4mg capsule PO SCH (21:00)
--- NOTE | 2019-01-31 23:00 | NUR ---
PT resting with no s/s of distress noted at this time. Bed is locked and low. Bilat soft wrist restraints in place and secure. Will continue to monitor.
[2019-02-01] VITALS (24 sets, daily range): BP systolic 92–116; BP diastolic 45–55
[2019-02-01] MEDS: mineral oil/petrolatum ophthal oint EACHEYE SCH ×4 (02:33→20:10)
[2019-02-01] MEDS: ipratropium/albuterol 3ml nebule NEB SCH ×6 (02:56→23:13)
[2019-02-01 03:01] LABS: EOSINOPHILS # (AUTO) 0.1 X10'3 (0-0.9); EOSINOPHILS % (AUTO) 0.5 % (0-6)
[2019-02-01 03:05] LABS: BASOPHILS % (AUTO) 0 % (0-1); LYMPHOCYTES # (AUTO) 0.7 X10'3 (1.1-4.8); LYMPHOCYTES % (AUTO) 3.8 % (21-51); MEAN CORPUSCULAR HEMOGLOBIN 32.2 PG (27.0-31.0); MEAN CORPUSCULAR HGB CONC 34.4 g/dL (33.0-36.5); MEAN CORPUSCULAR VOLUME 93.6 FL (78-98); MEAN PLATELET VOLUME 10.1 FL (7.4-10.4); MONOCYTES # (AUTO) 0.7 X10'3 (0-0.9); MONOCYTES % (AUTO) 3.5 % (2-12); NEUTROPHILS # (AUTO) 17.4 X10'3 (1.8-7.7); NEUTROPHILS % (AUTO) 92.2 % (42-75); WHITE BLOOD COUNT 18.9 X10'3 (4.5-11.0)
[2019-02-01 03:06] LABS: ABG BASE EXCESS -4.1 mmol/L (-2.0-3.0); ABG HCO3 19.1 mmol/L (22.0-26.0); ABG OXYGEN SATURATION 96.8 % (95-98); ABG PCO2 (T) 28.8 mmHg (35.0-45.0); ABG PH (T) 7.439 (7.350-7.450); ABG PO2 (T) 91.3 mmHg (83-108); FCOHb 0.1 % (0.5-1.5); FO2Hb 96.7 % (94-100); MINUTE VOLUME 11 L/min; PATIENT TEMPERATURE 37.1; PEEP 5 cm H2O; RESPIRATORY RATE 24 b/min; RESPIRATORY RATE (OBSERVED) 24 b/min; TIDAL VOLUME 400 mL; TOTAL HEMOGLOBIN 10.9 G/dl (12.0-16.0)
[2019-02-01 03:10] LABS: ALBUMIN 1.7 G/DL (3.4-5.0); ANION GAP 15 (8-16); BLOOD UREA NITROGEN 41 MG/DL (7-18); BUN/CREATININE RATIO 14.5 (6.6-38.0); CALCIUM 6.7 MG/DL (8.5-10.1); CHLORIDE 102 MMOL/L (99-107); CREATININE 2.83 MG/DL (0.40-0.90); GLUCOSE 115 MG/DL (70-104); MAGNESIUM 1.3 MG/DL (1.5-2.4); POTASSIUM 3.7 MMOL/L (3.5-5.1); SODIUM 138 MMOL/L (135-145); TOTAL CARBON DIOXIDE 20.7 MMOL/L (24-32); eGFR 16 ML/MIN
[2019-02-01 03:47] LABS: PLATELET COUNT 44 X10'3 (140-440)
--- NOTE | 2019-02-01 03:58 | NUR ---
PREETHI Sharma called d/t receiving a critical PLT of 44, previously was 54. No s/s of bleeding. No new orders at this time. Will continue to monitor.
[2019-02-01] MEDS: NORepinephrine 8mg/ 250ml NS 250 ML IV SCH ×3 (04:14→20:11)
[2019-02-01] MEDS: midazolam 100mg in NS 100ml 100 ML IV PRN (04:35)
--- NOTE | 2019-02-01 06:20 | NUR ---
Problems reprioritized. Patient report given, questions answered & plan of care reviewed with Jay ZELAYA.
[2019-02-01] MEDS: lisinopril 20mg tablet OGT SCH (06:35)
[2019-02-01 06:55] LABS: NUCLEATED RED BLOOD CELLS 1 /100WBC (0-0); PLATELET ESTIMATE DECREASED; TOTAL CELLS COUNTED 100
[2019-02-01 06:57] LABS: ANISOCYTOSIS 1+; BURR CELLS 2+; POLYCHROMASIA 1+; TOXIC GRANULATION 2+; TOXIC VACUOLATION 1+
[2019-02-01] MEDS: lactobacillus rhamnosus 10,000 MMU CELLS/CAPSULE OGT SCH ×2 (07:32→20:10)
[2019-02-01] MEDS: CefTRIAXone/D5W-Rocephin 1gm 50 ML IV SCH (07:32)
[2019-02-01] MEDS: sodium bicarbonate (8.4%) inj. 100 MEQ in dextrose 5%-water 1,000 ML IV SCH ×2 (07:32→18:58)
[2019-02-01] MEDS: atorvastatin 20mg tablet OGT SCH (07:33)
[2019-02-01] MEDS: aspirin 81mg tab.chew OGT SCH (07:33)
[2019-02-01] MEDS: amiodarone 200mg tablet OGT SCH (07:33)
[2019-02-01] MEDS: levoTHYROXINE 75mcg tablet OGT SCH (07:33)
[2019-02-01] MEDS: K and/or MAG REPLACEMENT MC SCH (08:00)
--- NOTE | 2019-02-01 10:35 | NUR ---
Dr. Wilson aware of low plt count at 44; no orders at this time.
[2019-02-01] MEDS: FENTANYL-0.9 % NACL/PF 100 ML IV PRN (18:12)
--- NOTE | 2019-02-01 18:24 | NUR ---
Problems reprioritized. Patient report given, questions answered & plan of care reviewed with Filomena ZELAYA.
--- NOTE | 2019-02-01 18:30 | NUR ---
Patient in room ICU 2039. I have received report from GARCIA Thompson and had the opportunity to ask questions and assume patient care.
[2019-02-01] MEDS: tamsulosin 0.4mg capsule PO SCH (20:10)
[2019-02-02] VITALS (24 sets, daily range): BP systolic 88–115; BP diastolic 38–54
[2019-02-02] MEDS: mineral oil/petrolatum ophthal oint EACHEYE SCH ×4 (02:30→19:49)
[2019-02-02 02:46] LABS: ALBUMIN 1.4 G/DL (3.4-5.0); ANION GAP 7 (8-16); BLOOD UREA NITROGEN 34 MG/DL (7-18); BUN/CREATININE RATIO 13.7 (6.6-38.0); CALCIUM 6.5 MG/DL (8.5-10.1); CHLORIDE 102 MMOL/L (99-107); CREATININE 2.48 MG/DL (0.40-0.90); GLUCOSE 147 MG/DL (70-104); MAGNESIUM 1.2 MG/DL (1.5-2.4); POTASSIUM 3.4 MMOL/L (3.5-5.1); SODIUM 136 MMOL/L (135-145); TOTAL CARBON DIOXIDE 26.9 MMOL/L (24-32); eGFR 18 ML/MIN
[2019-02-02] MEDS: ipratropium/albuterol 3ml nebule NEB SCH ×6 (03:01→23:27)
[2019-02-02 03:05] LABS: BASOPHILS % (AUTO) 0.1 % (0-1); EOSINOPHILS # (AUTO) 0.1 X10'3 (0-0.9); EOSINOPHILS % (AUTO) 0.4 % (0-6); HEMATOCRIT 28.6 % (35.0-45.0); HEMOGLOBIN 9.9 g/dl (12.0-16.0); LYMPHOCYTES # (AUTO) 0.6 X10'3 (1.1-4.8); LYMPHOCYTES % (AUTO) 2.6 % (21-51); MEAN CORPUSCULAR HEMOGLOBIN 32.3 PG (27.0-31.0); MEAN CORPUSCULAR HGB CONC 34.6 g/dL (33.0-36.5); MEAN CORPUSCULAR VOLUME 93.4 FL (78-98); MEAN PLATELET VOLUME 9.9 FL (7.4-10.4); MONOCYTES # (AUTO) 0.8 X10'3 (0-0.9); MONOCYTES % (AUTO) 3.8 % (2-12); NEUTROPHILS % (AUTO) 93.1 % (42-75); RED BLOOD COUNT 3.06 X10'6 (4.20-5.60); RED CELL DISTRIBUTION WIDTH 15.1 % (11.5-14.5); WHITE BLOOD COUNT 21.4 X10'3 (4.5-11.0)
[2019-02-02] MEDS: NORepinephrine 8mg/ 250ml NS 250 ML IV SCH ×3 (03:32→17:27)
[2019-02-02 03:41] LABS: ABG BASE EXCESS 1.3 mmol/L (-2.0-3.0); ABG HCO3 25.1 mmol/L (22.0-26.0); ABG OXYGEN SATURATION 92.6 % (95-98); ABG PCO2 (T) 37.2 mmHg (35.0-45.0); ABG PH (T) 7.448 (7.350-7.450); ABG PO2 (T) 64.8 mmHg (83-108); FCOHb 0.1 % (0.5-1.5); FMetHb 0.1 % (0.3-1.12); FO2Hb 92.4 % (94-100); MINUTE VOLUME 8 L/min; PATIENT TEMPERATURE 37.3; PEEP 5 cm H2O; RESPIRATORY RATE 20 b/min; RESPIRATORY RATE (OBSERVED) 20 b/min; TIDAL VOLUME 400 mL; TOTAL HEMOGLOBIN 10.9 G/dl (12.0-16.0)
[2019-02-02 03:55] LABS: PLATELET COUNT 29 X10'3 (140-440)
--- NOTE | 2019-02-02 04:30 | NUR ---
Nura Sharma aware of Platelets: 29, K: 3.4, and M.2 - orders received for a type and screen. She does not wish to replace the electrolytes or transfuse platelets at this time.
[2019-02-02] MEDS: sodium bicarbonate (8.4%) inj. 100 MEQ in dextrose 5%-water 1,000 ML IV SCH (05:42)
--- NOTE | 2019-02-02 06:13 | NUR ---
Problems reprioritized. Patient report given, questions answered & plan of care reviewed with GARCIA Saucedo.
--- NOTE | 2019-02-02 06:24 | NUR ---
Patient in room ICU 2039. I have received report from Filomena ZELAYA and had the opportunity to ask questions and assume patient care with preceptor Sheryl Chavez RN. Addendum: 02/02/19 at 0625 by Patricia Ashraf RN Amended: Links added.
[2019-02-02 06:37] LABS: PLATELET ESTIMATE DECREASED; TOTAL CELLS COUNTED 100
[2019-02-02 06:38] LABS: ANISOCYTOSIS 1+
[2019-02-02] MEDS: normal saline 1000ml 1,000 ML IV SCH ×2 (06:47→17:23)
[2019-02-02] MEDS: CefTRIAXone/D5W-Rocephin 1gm 50 ML IV SCH (07:18)
[2019-02-02] MEDS: K and/or MAG REPLACEMENT MC SCH (07:20)
[2019-02-02] MEDS: aspirin 81mg tab.chew OGT SCH (07:20)
[2019-02-02] MEDS: lisinopril 20mg tablet OGT SCH (07:20)
[2019-02-02] MEDS: amiodarone 200mg tablet OGT SCH (07:20)
[2019-02-02] MEDS: levoTHYROXINE 75mcg tablet OGT SCH (07:20)
[2019-02-02] MEDS: lactobacillus rhamnosus 10,000 MMU CELLS/CAPSULE OGT SCH ×2 (07:21→19:48)
[2019-02-02] MEDS: atorvastatin 20mg tablet OGT SCH (07:21)
--- NOTE | 2019-02-02 08:07 | NUR ---
Abrasion/skin tear noted on left ear under ETT strap. Picture obtained. Wound padded with foam dressing under strap. WOC consult ordered per protocol.
--- NOTE | 2019-02-02 13:25 | NUR ---
Attempting to wean Levoped. Infusing at 18 now. BP 101/47 (65).
--- NOTE | 2019-02-02 14:09 | NUR ---
Small skin tear noted to right hand that began to weep. Dressing placed, secured with kerlix.
--- NOTE | 2019-02-02 14:44 | NUR ---
Pt. noted to have small amount of emesis when RN checked on her. Pt. lavaged and suctioned orally and endotracheally. TF on hold while OGT is to LIS to decompress stomach. Dr. Wilson notified that pt. is not on a PPI or a blood thinner. Dr. Wilson to place orders.
[2019-02-02] MEDS: FENTANYL-0.9 % NACL/PF 100 ML IV PRN (16:15)
--- NOTE | 2019-02-02 17:00 | NUR ---
TF re-started at half rate (30).
--- NOTE | 2019-02-02 18:28 | NUR ---
Patient in room ICU 2039. I have received report from Patricia ZELAYA, and had the opportunity to ask questions and assume patient care.
--- NOTE | 2019-02-02 19:30 | NUR ---
PT is intubated and mechanically vented tolerating settings well, O2 sat >95%. PT is requiring pressors, Levo is running @ 16mcg/min, will attempts to titrate down as BP tolerated. All vaso active meds are being infused to CVL in RT groin. TF running @ 30mL OG, will attempts to increase as PT tolerates. Drew in palace with light carlos urine noted in tubing. Bed is locked and low. Bilat soft wrist restraints in place and secure. Will continue to monitor.
[2019-02-02] MEDS: famotidine/PF 10 mg/ml inj IV SCH (19:48)
[2019-02-02] MEDS: tamsulosin 0.4mg capsule PO SCH (21:00)
[2019-02-02] MEDS: heparin, porcine 5000 units/ml vial SQ SCH (22:33)
--- NOTE | 2019-02-02 22:40 | NUR ---
PREETHI Sharma notified Dr. mccann of PLT level, PT also has rust colored residuals. wanted Heparin given. 2000 dose of Heparin administered. Will continue to monitor.
[2019-02-03] VITALS (24 sets, daily range): BP systolic 90–130; BP diastolic 41–54
[2019-02-03] MEDS: mineral oil/petrolatum ophthal oint EACHEYE SCH ×4 (02:21→20:17)
[2019-02-03 02:46] LABS: BASOPHILS % (AUTO) 0 % (0-1); EOSINOPHILS % (AUTO) 0.2 % (0-6); HEMATOCRIT 27.9 % (35.0-45.0); HEMOGLOBIN 9.6 g/dl (12.0-16.0); LYMPHOCYTES # (AUTO) 0.7 X10'3 (1.1-4.8); LYMPHOCYTES % (AUTO) 2.5 % (21-51); MEAN CORPUSCULAR HEMOGLOBIN 32.3 PG (27.0-31.0); MEAN CORPUSCULAR HGB CONC 34.2 g/dL (33.0-36.5); MEAN CORPUSCULAR VOLUME 94.2 FL (78-98); MEAN PLATELET VOLUME 9.8 FL (7.4-10.4); MONOCYTES # (AUTO) 1.1 X10'3 (0-0.9); MONOCYTES % (AUTO) 4.2 % (2-12); NEUTROPHILS # (AUTO) 24.6 X10'3 (1.8-7.7); NEUTROPHILS % (AUTO) 93.1 % (42-75); RED BLOOD COUNT 2.96 X10'6 (4.20-5.60); RED CELL DISTRIBUTION WIDTH 15.2 % (11.5-14.5)
[2019-02-03 02:51] LABS: PLATELET COUNT 29 X10'3 (140-440); WHITE BLOOD COUNT 26.4 X10'3 (4.5-11.0)
[2019-02-03] MEDS: ipratropium/albuterol 3ml nebule NEB SCH ×6 (02:53→23:01)
[2019-02-03 02:59] LABS: ALBUMIN 1.3 G/DL (3.4-5.0); ANION GAP 9 (8-16); BLOOD UREA NITROGEN 34 MG/DL (7-18); BUN/CREATININE RATIO 17.2 (6.6-38.0); CALCIUM 7.3 MG/DL (8.5-10.1); CHLORIDE 103 MMOL/L (99-107); CREATININE 1.98 MG/DL (0.40-0.90); GLUCOSE 127 MG/DL (70-104); MAGNESIUM 1.2 MG/DL (1.5-2.4); POTASSIUM 3.6 MMOL/L (3.5-5.1); PREALBUMIN 6.6 MG/DL (19-36); SODIUM 138 MMOL/L (135-145); TOTAL CARBON DIOXIDE 25.8 MMOL/L (24-32); eGFR 24 ML/MIN
--- NOTE | 2019-02-03 03:15 | NUR ---
Received critical PLT of 29 and WBC of 26.1. Orders received to draw new sets of blood cultures and continue to monitor PLT. Addendum: 02/03/19 at 0542 by Jas Haq RN PREETHI sandoval
[2019-02-03 03:20] LABS: ABG BASE EXCESS -0.7 mmol/L (-2.0-3.0); ABG HCO3 23.1 mmol/L (22.0-26.0); ABG OXYGEN SATURATION 91.7 % (95-98); ABG PCO2 (T) 35.5 mmHg (35.0-45.0); ABG PH (T) 7.434 (7.350-7.450); ABG PO2 (T) 61.8 mmHg (83-108); FCOHb 0.9 % (0.5-1.5); FMetHb 0.1 % (0.3-1.12); FO2Hb 90.8 % (94-100); PATIENT TEMPERATURE 37.5; PEEP 5 cm H2O; RESPIRATORY RATE 16 b/min; RESPIRATORY RATE (OBSERVED) 22 b/min; TIDAL VOLUME 400 mL; TOTAL HEMOGLOBIN 10.7 G/dl (12.0-16.0)
[2019-02-03] MEDS: NORepinephrine 8mg/ 250ml NS 250 ML IV SCH (03:51)
[2019-02-03] MEDS: normal saline 1000ml 1,000 ML IV SCH (06:07)
--- NOTE | 2019-02-03 06:28 | NUR ---
Problems reprioritized. Patient report given, questions answered & plan of care reviewed with Patricia ZELAYA.
--- NOTE | 2019-02-03 06:54 | NUR ---
Patient in room ICU 2039. I have received report from Jas ZELAYA and had the opportunity to ask questions and assume patient care with preceptor Sheryl Chavez RN.. Addendum: 02/03/19 at 0654 by Patricia Ashraf RN Amended: Links added.
--- NOTE | 2019-02-03 07:47 | NUR ---
vt exp not at full 400 replaced flow sensor and turned on leak compensation Addendum: 02/03/19 at 0748 by Sherif Dave RT Amended: Links added.
[2019-02-03] MEDS: midazolam 100mg in NS 100ml 100 ML IV PRN (07:59)
[2019-02-03] MEDS: lisinopril 20mg tablet OGT SCH (08:00)
[2019-02-03] MEDS: CefTRIAXone/D5W-Rocephin 1gm 50 ML IV SCH (08:05)
[2019-02-03] MEDS: famotidine/PF 10 mg/ml inj IV SCH ×2 (08:09→20:18)
[2019-02-03] MEDS: atorvastatin 20mg tablet OGT SCH (08:09)
[2019-02-03] MEDS: heparin, porcine 5000 units/ml vial SQ SCH (08:09)
[2019-02-03] MEDS: lactobacillus rhamnosus 10,000 MMU CELLS/CAPSULE OGT SCH ×2 (08:10→20:18)
[2019-02-03] MEDS: amiodarone 200mg tablet OGT SCH (08:10)
[2019-02-03] MEDS: levoTHYROXINE 75mcg tablet OGT SCH (08:10)
[2019-02-03] MEDS: aspirin 81mg tab.chew OGT SCH (08:10)
[2019-02-03 08:20] LABS: PLATELET ESTIMATE DECREASED; TOTAL CELLS COUNTED 100
--- NOTE | 2019-02-03 09:38 | NUR ---
Pt. has small amount of emesis when turned. TF off for now. OGT to LIS.
[2019-02-03] MEDS: furosemide 20 MG/2 ML vial IV SCH ×2 (09:42→20:18)
[2019-02-03] MEDS ORDERED: polyethylene glycol 3350 17gm powd pack PO ONE (10:25)
[2019-02-03] MEDS ORDERED: sodium phosphate inj. 15 MMOL in dextrose 5%-water 150 ML IV PRN (10:45)
[2019-02-03] MEDS ORDERED: magnesium 2GM in 50ml NS 50 ML IV PRN (10:45)
[2019-02-03] MEDS ORDERED: Neutra Phos packet PO PRN (10:45)
[2019-02-03] MEDS ORDERED: sodium phosphate inj. 30 MMOL in dextrose 5%-water 250 ML IV PRN (10:45)
[2019-02-03] MEDS ORDERED: magnesium 4gm in 100ml NS 100 ML IV PRN (10:45)
[2019-02-03] MEDS ORDERED: Neutra Phos packet OGT PRN (11:29)
--- NOTE | 2019-02-03 13:04 | NUR ---
Reassessment: patient continues with intubation and sedation, receiving fentanyl. Tube feeding not well tolerated with high gastric residual volume of 600 ml and vomiting. Tube feeding off, patient currently not meeting nutrition goal. MD started relistor today. Only small BM and smears for three days. Will continue to follow. stability. Rec: 1. Resume OGTF when gastric residual volume is WNL using Vital High Protein at 65ml/hr goal; to provide 1560ml fluid, 1560kcals, 1310ml free water, and 137g protein. 2. water flush 200ml Q4 3. PALB Q /; daily wts 4. recommend to continue mu-opioid receptor antagonist 5. when extubated, advance diet as medically indicated to heart healthy Addendum: 02/03/19 at [address] Amended: Links added.
[2019-02-03] MEDS: NORepinephrine 8 MG in NS 250ml IV soln IV SCH ×2 (13:50→17:42)
[2019-02-03] MEDS: hydrocortisone sod succ/PF 100mg/2ml inj. IV SCH ×2 (13:56→20:18)
--- NOTE | 2019-02-03 14:14 | NUR ---
PICC nurse here to place PICC.
[2019-02-03] MEDS: methylnaltrexone br 12mg/0.6ml inj***SubQ only SQ SCH (16:08)
[2019-02-03 17:26] LABS: PARTIAL THROMBOPLASTIN TIME 31 SECONDS (22-32)
[2019-02-03] MEDS ORDERED: NORepinephrine 8mg/ 250ml NS 250 ML IV ONE (17:40)
--- NOTE | 2019-02-03 18:30 | NUR ---
Recieved pt report from Patricia ZELAYA
--- NOTE | 2019-02-03 18:40 | NUR ---
Paged vascular regarding ordered study
--- NOTE | 2019-02-03 19:40 | NUR ---
nuclear cardiology technologist states study will be done first thing in the AM
[2019-02-03] MEDS: tamsulosin 0.4mg capsule PO SCH (20:18)
[2019-02-03] MEDS ORDERED: metoclopramide 5 mg/ml inj IV ONE (23:00)
[2019-02-04] VITALS (24 sets, daily range): BP systolic 92–129; BP diastolic 39–51
--- NOTE | 2019-02-04 | NUR ---
Tube feed restarted at a trickle per [employer]
[2019-02-04] MEDS: mineral oil/petrolatum ophthal oint EACHEYE SCH ×4 (02:29→20:10)
[2019-02-04] MEDS: hydrocortisone sod succ/PF 100mg/2ml inj. IV SCH ×4 (02:29→20:10)
[2019-02-04 02:58] LABS: BASOPHILS # (AUTO) 0.1 X10'3 (0-0.2); BASOPHILS % (AUTO) 0.2 % (0-1); EOSINOPHILS % (AUTO) 0 % (0-6); HEMATOCRIT 29.5 % (35.0-45.0); LYMPHOCYTES # (AUTO) 0.5 X10'3 (1.1-4.8); LYMPHOCYTES % (AUTO) 1.9 % (21-51); MEAN CORPUSCULAR HEMOGLOBIN 31.8 PG (27.0-31.0); MEAN CORPUSCULAR HGB CONC 33.8 g/dL (33.0-36.5); MEAN CORPUSCULAR VOLUME 94.1 FL (78-98); MEAN PLATELET VOLUME 10.4 FL (7.4-10.4); MONOCYTES # (AUTO) 0.8 X10'3 (0-0.9); MONOCYTES % (AUTO) 2.7 % (2-12); NEUTROPHILS % (AUTO) 95.2 % (42-75); RED BLOOD COUNT 3.13 X10'6 (4.20-5.60); RED CELL DISTRIBUTION WIDTH 15.2 % (11.5-14.5)
[2019-02-04 03:04] LABS: PLATELET COUNT 37 X10'3 (140-440); WHITE BLOOD COUNT 28.4 X10'3 (4.5-11.0)
[2019-02-04 03:05] LABS: ALANINE AMINOTRANSFERASE 64 U/L (12-78); ALBUMIN 1.3 G/DL (3.4-5.0); ALBUMIN/GLOBULIN RATIO 0.4 (1.1-1.5); ALKALINE PHOSPHATASE 190 IU/L (46-116); ANION GAP 10 (8-16); ASPARTATE AMINO TRANSFERASE 39 U/L (10-37); BILIRUBIN,TOTAL 0.6 MG/DL (0.1-1.0); BLOOD UREA NITROGEN 36 MG/DL (7-18); BUN/CREATININE RATIO 20.5 (6.6-38.0); CALCIUM 8.1 MG/DL (8.5-10.1); CHLORIDE 103 MMOL/L (99-107); CREATININE 1.76 MG/DL (0.40-0.90); GLUCOSE 148 MG/DL (70-104); MAGNESIUM 2.1 MG/DL (1.5-2.4); POTASSIUM 3.7 MMOL/L (3.5-5.1); SODIUM 138 MMOL/L (135-145); TOTAL CARBON DIOXIDE 24.9 MMOL/L (24-32); eGFR 27 ML/MIN
[2019-02-04 03:32] LABS: PLATELET ESTIMATE DECREASED; TOTAL CELLS COUNTED 100
[2019-02-04 03:33] LABS: POLYCHROMASIA FEW; SCHISTOCYTES FEW
[2019-02-04] MEDS: ipratropium/albuterol 3ml nebule NEB SCH ×6 (04:02→22:52)
[2019-02-04 04:11] LABS: ABG BASE EXCESS -1.6 mmol/L (-2.0-3.0); ABG HCO3 22.6 mmol/L (22.0-26.0); ABG OXYGEN SATURATION 91.8 % (95-98); ABG PCO2 (T) 33.3 mmHg (35.0-45.0); ABG PH (T) 7.442 (7.350-7.450); ABG PO2 (T) 55.1 mmHg (83-108); FCOHb 0.4 % (0.5-1.5); FMetHb 0.1 % (0.3-1.12); FO2Hb 91.3 % (94-100); PEEP 5 cm H2O; RESPIRATORY RATE 16 b/min; RESPIRATORY RATE (OBSERVED) 22 b/min; TIDAL VOLUME 400 mL; TOTAL HEMOGLOBIN 11.4 G/dl (12.0-16.0)
--- NOTE | 2019-02-04 04:19 | NUR ---
Pt. remains hypothermic despite multiple warm blanket applications. Bear hugger warmer applied
--- NOTE | 2019-02-04 06:31 | NUR ---
Pt report given to Donato ZELAYA
[2019-02-04] MEDS ORDERED: normal saline 1000ml 1,000 ML IV ONE (07:35)
[2019-02-04] MEDS: famotidine/PF 10 mg/ml inj IV SCH (08:14)
[2019-02-04] MEDS: atorvastatin 20mg tablet OGT SCH (08:15)
[2019-02-04] MEDS: lactobacillus rhamnosus 10,000 MMU CELLS/CAPSULE OGT SCH ×2 (08:15→20:10)
[2019-02-04] MEDS: aspirin 81mg tab.chew OGT SCH (08:15)
[2019-02-04] MEDS: CefTRIAXone/D5W-Rocephin 1gm 50 ML IV SCH (08:15)
[2019-02-04] MEDS: levoTHYROXINE 75mcg tablet OGT SCH (08:15)
[2019-02-04] MEDS ORDERED: vancomycin/NS 1 GM ADD-VANTAGE 250 ML IV ONE (11:30)
[2019-02-04] MEDS: NORepinephrine 8mg/ 250ml NS 250 ML IV SCH (11:48)
[2019-02-04] MEDS: MEROPENEM 500MG/50ML-NS IVPB 50 ML IV SCH ×2 (12:00→16:19)
[2019-02-04] MEDS: furosemide 20 MG/2 ML vial IV SCH ×2 (12:05→20:10)
--- NOTE | 2019-02-04 12:24 | NUR ---
Follow up: patient's MAP is 56 on pressor support with norepinephrine. Last gastric residual check 200 ml, tube feeding rate at 20 ml/hr. Recommend to keep TF at trickle rate while MAP is under 65 with pressor support, d/w and bedside RN. Small BMs since 02/01. Receiving relistor now. Will continue to follow. Reassessment: patient continues with intubation and sedation, receiving fentanyl. Tube feeding not well tolerated with high gastric residual volume of 600 ml and vomiting. Tube feeding off, patient currently not meeting nutrition goal. MD started relistor today. Only small BM and smears for three days. Will continue to follow. stability. Rec: 1. While MAP is under 65 with pressor support recommend trickle feeding at 20 ml/hr. Resume increasing OGTF to goal rate when MAP is at least 65 and with gastric residual volume WNL using Vital High Protein at 65ml/hr goal; to provide 1560ml fluid, 1560kcals, 1310ml free water, and 137g protein. 2. water flush 200ml Q4, hold while trickle rate 3. PALB Q /; daily wts 4. recommend to continue mu-opioid receptor antagonist 5. when extubated, advance diet as medically indicated to heart healthy Addendum: 02/04/19 at [address] Amended: Links added.
[2019-02-04 12:25] LABS: CLARITY,URINE CLOUDY (Clear); COLOR,URINE RED (Yellow)
[2019-02-04 12:41] LABS: UA COLLECTION TYPE FOLEY CATH
[2019-02-04 12:51] LABS: RBC,URINE TNTC /HPF (0-2)
[2019-02-04 12:52] LABS: BACTERIA,URINE 1+ /HPF (Neg); RENAL CELLS, URINE FEW /HPF; SQUAMOUS EPITHELIAL CELL,UR MODERATE /LPF (FEW)
[2019-02-04 12:53] LABS: TRANSITIONAL EPI CELLS,URINE MODERATE /HPF
[2019-02-04 12:54] LABS: AMORPHOUS URATES 4+; CELLULAR CAST 0-4 /LPF (NEGATIVE)
[2019-02-04 12:55] LABS: FINE GRANULAR CAST 0-3 /LPF (NEGATIVE)
[2019-02-04] MEDS ORDERED: dextrose ORAL solution 15 GM/59 ML bottle PO PRN ×2 (15:20)
[2019-02-04] MEDS ORDERED: dextrose 50%-water 50ml dispensing syringe IV PRN (15:20)
[2019-02-04] MEDS ORDERED: MESSAGE TO PHARMACY PO ONE (15:20)
[2019-02-04] MEDS ORDERED: glucagon, human recombinant 1mg kit SUBCUT PRN (15:20)
[2019-02-04] MEDS: insulin regular, human vial - multi-dose SQ SCH ×2 (15:37→20:32)
--- NOTE | 2019-02-04 19:00 | NUR ---
Problems reprioritized. Patient report given, questions answered & plan of care reviewed with GARCIA Stephens.
--- NOTE | 2019-02-04 19:00 | NUR ---
Patient in room ICU 2039. I have received report from GARCIA Sewell and had the opportunity to ask questions and assume patient care.
[2019-02-04] MEDS: famotidine 20mg tablet PO SCH (20:11)
[2019-02-04] MEDS: tamsulosin 0.4mg capsule PO SCH (20:24)
[2019-02-04] MEDS: insulin glargine (Lantus) pen - multi-dose SQ SCH (20:33)
[2019-02-05] VITALS (24 sets, daily range): BP systolic 89–137; BP diastolic 41–59
[2019-02-05] MEDS: NORepinephrine 8mg/ 250ml NS 250 ML IV SCH ×2 (00:06→15:58)
[2019-02-05] MEDS: MEROPENEM 500MG/50ML-NS IVPB 50 ML IV SCH ×3 (00:07→15:56)
[2019-02-05] MEDS: hydrocortisone sod succ/PF 100mg/2ml inj. IV SCH ×4 (02:17→21:48)
[2019-02-05] MEDS: mineral oil/petrolatum ophthal oint EACHEYE SCH ×4 (02:18→21:49)
[2019-02-05] MEDS: insulin regular, human vial - multi-dose SQ SCH ×4 (02:21→22:13)
[2019-02-05 02:26] LABS: BASOPHILS # (AUTO) 0.1 X10'3 (0-0.2); BASOPHILS % (AUTO) 0.3 % (0-1); EOSINOPHILS % (AUTO) 0 % (0-6); HEMATOCRIT 27.7 % (35.0-45.0); HEMOGLOBIN 9.5 g/dl (12.0-16.0); LYMPHOCYTES # (AUTO) 0.6 X10'3 (1.1-4.8); LYMPHOCYTES % (AUTO) 2.3 % (21-51); MEAN CORPUSCULAR HEMOGLOBIN 32.2 PG (27.0-31.0); MEAN CORPUSCULAR HGB CONC 34.3 g/dL (33.0-36.5); MEAN CORPUSCULAR VOLUME 93.7 FL (78-98); MEAN PLATELET VOLUME 10.2 FL (7.4-10.4); MONOCYTES # (AUTO) 1.1 X10'3 (0-0.9); MONOCYTES % (AUTO) 4.1 % (2-12); NEUTROPHILS # (AUTO) 24.6 X10'3 (1.8-7.7); NEUTROPHILS % (AUTO) 93.3 % (42-75); PLATELET COUNT 64 X10'3 (140-440); RED BLOOD COUNT 2.96 X10'6 (4.20-5.60); RED CELL DISTRIBUTION WIDTH 15.1 % (11.5-14.5)
[2019-02-05 02:32] LABS: WHITE BLOOD COUNT 26.4 X10'3 (4.5-11.0)
[2019-02-05] MEDS: ipratropium/albuterol 3ml nebule NEB SCH ×6 (02:41→22:44)
[2019-02-05 02:45] LABS: ALANINE AMINOTRANSFERASE 56 U/L (12-78); ALBUMIN 1.4 G/DL (3.4-5.0); ALBUMIN/GLOBULIN RATIO 0.4 (1.1-1.5); ALKALINE PHOSPHATASE 167 IU/L (46-116); ANION GAP 12 (8-16); ASPARTATE AMINO TRANSFERASE 61 U/L (10-37); BILIRUBIN,TOTAL 0.4 MG/DL (0.1-1.0); BLOOD UREA NITROGEN 43 MG/DL (7-18); BUN/CREATININE RATIO 24.3 (6.6-38.0); CALCIUM 8.2 MG/DL (8.5-10.1); CHLORIDE 104 MMOL/L (99-107); CREATININE 1.77 MG/DL (0.40-0.90); GLUCOSE 189 MG/DL (70-104); POTASSIUM 3.1 MMOL/L (3.5-5.1); SODIUM 140 MMOL/L (135-145); TOTAL CARBON DIOXIDE 24.5 MMOL/L (24-32); TOTAL PROTEIN 4.9 G/DL (6.4-8.2); eGFR 27 ML/MIN
[2019-02-05 02:55] LABS: HEMOGLOBIN A1C 6.2 % (4.5-6.2)
[2019-02-05 02:57] LABS: NUCLEATED RED BLOOD CELLS 1 /100WBC (0-0); PLATELET ESTIMATE DECREASED; TOTAL CELLS COUNTED 100
[2019-02-05] MEDS: potassium Cl 20mEq/100mL bag 100 ML IV PRN ×3 (03:07→06:52)
[2019-02-05 03:51] LABS: ABG BASE EXCESS -0.6 mmol/L (-2.0-3.0); ABG HCO3 22.2 mmol/L (22.0-26.0); ABG OXYGEN SATURATION 92.3 % (95-98); ABG PCO2 (T) 30.4 mmHg (35.0-45.0); ABG PH (T) 7.482 (7.350-7.450); ABG PO2 (T) 65.5 mmHg (83-108); FCOHb 0.4 % (0.5-1.5); FO2Hb 91.9 % (94-100); MINUTE VOLUME 7 L/min; PEEP 5 cm H2O; RESPIRATORY RATE 16 b/min; RESPIRATORY RATE (OBSERVED) 18 b/min; TIDAL VOLUME 400 mL; TOTAL HEMOGLOBIN 10.6 G/dl (12.0-16.0)
--- NOTE | 2019-02-05 06:30 | NUR ---
Patient in room ICU 2039. I have received report from GARCIA Stephens and had the opportunity to ask questions and assume patient care.
--- NOTE | 2019-02-05 06:39 | NUR ---
Problems reprioritized. Patient report given, questions answered & plan of care reviewed with GARCIA Meade.
[2019-02-05] MEDS ORDERED: vancomycin/NS 1 GM ADD-VANTAGE 250 ML IV SCH (08:00)
[2019-02-05] MEDS ORDERED: methylnaltrexone br 12mg/0.6ml inj***SubQ only SQ SCH (08:00)
[2019-02-05] MEDS: furosemide 20 MG/2 ML vial IV SCH ×2 (09:04→21:48)
[2019-02-05] MEDS: methylnaltrexone br 12mg/0.6ml inj***SubQ only SQ SCH (09:04)
[2019-02-05] MEDS: levoTHYROXINE 75mcg tablet OGT SCH (09:05)
[2019-02-05] MEDS: atorvastatin 20mg tablet OGT SCH (09:05)
[2019-02-05] MEDS: famotidine 20mg tablet PO SCH ×2 (09:05→21:49)
[2019-02-05] MEDS: lactobacillus rhamnosus 10,000 MMU CELLS/CAPSULE OGT SCH ×2 (09:05→21:48)
[2019-02-05] MEDS: aspirin 81mg tab.chew OGT SCH (09:06)
[2019-02-05] MEDS: lactulose 20gm/30ml cup PO SCH ×3 (12:22→20:00)
--- NOTE | 2019-02-05 13:46 | NUR ---
Reassessment: MAP is now over 65, recommend to resume increasing tube feeding to goal as tolerated. Last gastric residual check 100 ml. Small BMs since 02/01, bedside RN discussed at rounds that family reports patient has longstanding issues with bowel regularity, lactulose q 4 was added by airport tower controller, she continues with relistor. Discussed at rounds to decrease water flush from 200 q 4, recommend decreasing to 100 q 4 to meet needs for tube feeding without overloading with fluids. Discussed above with bedside nurse. Will continue to follow. Rec: 1. Resume increasing OGTF to goal rate when MAP is at least 65 and with gastric residual volume WNL using Vital High Protein at 65ml/hr goal; to provide 1560ml fluid, 1560kcals, 1310ml free water, and 137g protein. 2. water flush 100 ml q 4 hours 3. PALB Q /; daily wts 4. recommend to continue mu-opioid receptor antagonist, continue bowel care 5. when extubated, advance diet as medically indicated to heart healthy Addendum: 02/05/19 at [address] Amended: Links added.
[2019-02-05] MEDS: apixaban 2.5mg tablet PO SCH ×2 (14:07→21:49)
[2019-02-05] MEDS: ondansetron/PF 4mg/2ml inj IV PRN (15:11)
--- NOTE | 2019-02-05 15:12 | NUR ---
PATIENT GAGGING on ET tube, vomiting, tube feed shut off and patient given zofran
[2019-02-05] MEDS: FENTANYL-0.9 % NACL/PF 100 ML IV PRN (15:58)
--- NOTE | 2019-02-05 18:30 | NUR ---
Patient in room ICU 2039. I have received report from GARCIA Meade and had the opportunity to ask questions and assume patient care.
[2019-02-05] MEDS: tamsulosin 0.4mg capsule PO SCH (21:00)
[2019-02-05] MEDS ORDERED: lactulose 20gm/30ml cup PO ONE (22:10)
[2019-02-05] MEDS: insulin glargine (Lantus) pen - multi-dose SQ SCH (22:14)
[2019-02-06] VITALS (24 sets, daily range): BP systolic 95–156; BP diastolic 44–79
[2019-02-06] MEDS: MEROPENEM 500MG/50ML-NS IVPB 50 ML IV SCH ×4 (00:11→23:46)
[2019-02-06] MEDS: mineral oil/petrolatum ophthal oint EACHEYE SCH ×4 (02:39→20:51)
[2019-02-06] MEDS: hydrocortisone sod succ/PF 100mg/2ml inj. IV SCH ×3 (02:39→20:51)
[2019-02-06] MEDS: insulin regular, human vial - multi-dose SQ SCH ×4 (02:48→21:21)
[2019-02-06 03:21] LABS: BASOPHILS % (AUTO) 0 % (0-1); EOSINOPHILS % (AUTO) 0 % (0-6); HEMATOCRIT 29.2 % (35.0-45.0); HEMOGLOBIN 9.8 g/dl (12.0-16.0); LYMPHOCYTES # (AUTO) 0.9 X10'3 (1.1-4.8); LYMPHOCYTES % (AUTO) 3.8 % (21-51); MEAN CORPUSCULAR HEMOGLOBIN 31.2 PG (27.0-31.0); MEAN CORPUSCULAR HGB CONC 33.4 g/dL (33.0-36.5); MEAN CORPUSCULAR VOLUME 93.3 FL (78-98); MEAN PLATELET VOLUME 10.5 FL (7.4-10.4); MONOCYTES # (AUTO) 0.7 X10'3 (0-0.9); MONOCYTES % (AUTO) 2.9 % (2-12); NEUTROPHILS # (AUTO) 21.3 X10'3 (1.8-7.7); NEUTROPHILS % (AUTO) 93.3 % (42-75); PLATELET COUNT 77 X10'3 (140-440); RED BLOOD COUNT 3.13 X10'6 (4.20-5.60); RED CELL DISTRIBUTION WIDTH 14.9 % (11.5-14.5); WHITE BLOOD COUNT 22.8 X10'3 (4.5-11.0)
[2019-02-06] MEDS: ipratropium/albuterol 3ml nebule NEB SCH ×6 (03:22→22:39)
[2019-02-06 03:35] LABS: ABG BASE EXCESS 1.3 mmol/L (-2.0-3.0); ABG HCO3 24.2 mmol/L (22.0-26.0); ABG OXYGEN SATURATION 93.4 % (95-98); ABG PCO2 (T) 31.7 mmHg (35.0-45.0); ABG PO2 (T) 66.1 mmHg (83-108); FCOHb 0.2 % (0.5-1.5); FMetHb 0.3 % (0.3-1.12); FO2Hb 92.9 % (94-100); MINUTE VOLUME 7 L/min; PATIENT TEMPERATURE 36.5; PEEP 5 cm H2O; RESPIRATORY RATE 16 b/min; RESPIRATORY RATE (OBSERVED) 19 b/min; TIDAL VOLUME 400 mL; TOTAL HEMOGLOBIN 10.5 G/dl (12.0-16.0)
[2019-02-06 03:45] LABS: ALANINE AMINOTRANSFERASE 59 U/L (12-78); ALBUMIN 1.5 G/DL (3.4-5.0); ALBUMIN/GLOBULIN RATIO 0.4 (1.1-1.5); ALKALINE PHOSPHATASE 152 IU/L (46-116); ANION GAP 12 (8-16); ASPARTATE AMINO TRANSFERASE 51 U/L (10-37); BILIRUBIN,TOTAL 0.5 MG/DL (0.1-1.0); BLOOD UREA NITROGEN 51 MG/DL (7-18); BUN/CREATININE RATIO 29.3 (6.6-38.0); CALCIUM 8.3 MG/DL (8.5-10.1); CHLORIDE 107 MMOL/L (99-107); CREATININE 1.74 MG/DL (0.40-0.90); GLUCOSE 197 MG/DL (70-104); SODIUM 145 MMOL/L (135-145); TOTAL CARBON DIOXIDE 26.1 MMOL/L (24-32); eGFR 28 ML/MIN
[2019-02-06 03:53] LABS: POTASSIUM 2.9 MMOL/L (3.5-5.1)
[2019-02-06 04:00] LABS: BANDS% (MANUAL) 10 % (0-10); LYMPHOCYTES % (MANUAL) 2 % (21-51); NEUTROPHILS % (MANUAL) 82 % (42-75); TOTAL CELLS COUNTED 100
[2019-02-06 04:01] LABS: METAMYLEOCYTES% (MANUAL) 3 % (0-0); MONOCYTES % (MANUAL) 3 % (2-12); NUCLEATED RED BLOOD CELLS 1 /100WBC (0-0); PLATELET ESTIMATE DECREASED
[2019-02-06] MEDS: potassium Cl 20mEq/100mL bag 100 ML IV PRN ×4 (04:15→08:33)
--- NOTE | 2019-02-06 06:42 | NUR ---
Problems reprioritized. Patient report given, questions answered & plan of care reviewed with GARCIA Thompson.
[2019-02-06] MEDS: lactobacillus rhamnosus 10,000 MMU CELLS/CAPSULE OGT SCH ×2 (08:06→20:51)
[2019-02-06] MEDS: aspirin 81mg tab.chew OGT SCH (08:06)
[2019-02-06] MEDS: famotidine 20mg tablet PO SCH ×2 (08:06→20:52)
[2019-02-06] MEDS: apixaban 2.5mg tablet PO SCH ×2 (08:06→20:52)
[2019-02-06] MEDS: levoTHYROXINE 75mcg tablet OGT SCH (08:06)
[2019-02-06] MEDS: atorvastatin 20mg tablet OGT SCH (08:06)
[2019-02-06] MEDS: furosemide 20 MG/2 ML vial IV SCH ×2 (08:33→20:51)
[2019-02-06] MEDS: NORepinephrine 8mg/ 250ml NS 250 ML IV SCH (12:40)
--- NOTE | 2019-02-06 16:00 | NUR ---
Patient with run of Vtach during bed change; Dr. Patel aware, restart PO Amio 200mg BID. aware of K at 3.6 up from 2.9. Pt not having ectopy except for during turns.
--- NOTE | 2019-02-06 17:00 | NUR ---
ART line removed per hospital policy, pt tolerated well.
--- NOTE | 2019-02-06 18:40 | NUR ---
Problems reprioritized. Patient report given, questions answered & plan of care reviewed with Fredy ZELAYA.
--- NOTE | 2019-02-06 18:45 | NUR ---
PER ASSESSMENT - PEG SITE WITH SMALL TF DRAINAGE BUT PERULENT AT THE ENTRANCE SITE. PEF TUBE IS AT 4 CM ROMA AT THE HUB. VERY SMALL PIECE OF GAUZE BELOW THE BUMBPER TO CATCH THE SMALL AMT TF AND ALSO THE PURULENT DRANAGE. HOANG TLC - Addendum: 02/07/19 at 0334 by Fredy Newby RN (NOTE CLOSED UNEXPECTEDLY) R TLC DRESSING NOT DATED - WILL RESEARCH TO SEE WHEN DOCUMENTATION ON THE DRESSING CHANGE. CDI OTHERWISE. # 8 ETT 22 CM AT LIP. PATIENT OPENS EYES WITH PAIN/STIMULUS BUT NO FOLLOWING COMMANDS OR EYE CONTACT. REORIENTED. ALL PROCEDURES EXPLAINED. ALL DRESSING RE SKIN CARE ARE CDI AT THIS TIME
[2019-02-06] MEDS: amiodarone 200mg tablet PO SCH (20:51)
[2019-02-06] MEDS: tamsulosin 0.4mg capsule PO SCH ×2 (20:52→21:00)
[2019-02-06] MEDS: insulin glargine (Lantus) pen - multi-dose SQ SCH (21:23)
--- NOTE | 2019-02-06 23:30 | NUR ---
PATIENTS DRY FLOW WITH SEROUS DRAINAGE WELL A BROWNISH CLEAR DRAINAGE SEEMS TO BE FROM THE SACRAL WOUND. COMPLETE BED AND BATH DURING THE TURN THE SACRAL DRESSING FELL APART - MEPILEX DOES NOT STAY INTACT AT ALL DUE TO THE SHAPE AND DEPTH OF THE WOUND. CLEANSED SACRAL WOUND WITH WOUND CLEANSER, RINSE WITH SALINE, NEW SILVER ALGINATE CUT INTO A SPIRAL WITH THERA-HONEY AT THE END AND PLACED IN WOUND - NEW MEPILEX . ALL ACTIONS PER ORDER Addendum: 02/07/19 at 2210 by Fredy Newby RN PLEASE DISREGARD THIS NOTE - WRONG PATIENT - UNABLE TO REMOVE FROM THIS CHART
[2019-02-07] VITALS (24 sets, daily range): BP systolic 85–124; BP diastolic 34–64
[2019-02-07] MEDS: ipratropium/albuterol 3ml nebule NEB SCH ×6 (02:34→22:41)
[2019-02-07] MEDS: mineral oil/petrolatum ophthal oint EACHEYE SCH ×4 (03:09→20:04)
[2019-02-07] MEDS: insulin regular, human vial - multi-dose SQ SCH ×3 (03:09→20:18)
[2019-02-07 04:02] LABS: HEMATOCRIT 27.8 % (35.0-45.0); HEMOGLOBIN 9.3 g/dl (12.0-16.0)
[2019-02-07 04:03] LABS: MEAN CORPUSCULAR HEMOGLOBIN 31.9 PG (27.0-31.0); MEAN CORPUSCULAR HGB CONC 33.3 g/dL (33.0-36.5); MEAN CORPUSCULAR VOLUME 95.7 FL (78-98); MEAN PLATELET VOLUME 10.8 FL (7.4-10.4); PLATELET COUNT 83 X10'3 (140-440); RED BLOOD COUNT 2.91 X10'6 (4.20-5.60); RED CELL DISTRIBUTION WIDTH 15.1 % (11.5-14.5); WHITE BLOOD COUNT 20.6 X10'3 (4.5-11.0)
[2019-02-07 04:15] LABS: ALANINE AMINOTRANSFERASE 49 U/L (12-78); ALBUMIN 1.5 G/DL (3.4-5.0); ALBUMIN/GLOBULIN RATIO 0.5 (1.1-1.5); ALKALINE PHOSPHATASE 126 IU/L (46-116); ANION GAP 8 (8-16); ASPARTATE AMINO TRANSFERASE 36 U/L (10-37); BILIRUBIN,TOTAL 0.5 MG/DL (0.1-1.0); BLOOD UREA NITROGEN 58 MG/DL (7-18); BUN/CREATININE RATIO 36.5 (6.6-38.0); CALCIUM 8.1 MG/DL (8.5-10.1); CHLORIDE 109 MMOL/L (99-107); CREATININE 1.59 MG/DL (0.40-0.90); GLUCOSE 133 MG/DL (70-104); SODIUM 144 MMOL/L (135-145); TOTAL CARBON DIOXIDE 26.6 MMOL/L (24-32); TOTAL PROTEIN 4.8 G/DL (6.4-8.2); eGFR 31 ML/MIN
[2019-02-07 04:30] LABS: BANDS% (MANUAL) 6 % (0-10); LYMPHOCYTES % (MANUAL) 6 % (21-51); MONOCYTES % (MANUAL) 2 % (2-12); NEUTROPHILS % (MANUAL) 86 % (42-75); NUCLEATED RED BLOOD CELLS 1 /100WBC (0-0); PLATELET ESTIMATE DECREASED; TOTAL CELLS COUNTED 100
[2019-02-07 04:36] LABS: ABG BASE EXCESS -0.6 mmol/L (-2.0-3.0); ABG HCO3 21.6 mmol/L (22.0-26.0); ABG OXYGEN SATURATION 90.8 % (95-98); ABG PCO2 (T) 27.7 mmHg (35.0-45.0); ABG PH (T) 7.511 (7.350-7.450); ABG PO2 (T) 60.4 mmHg (83-108); FCOHb 0.2 % (0.5-1.5); FO2Hb 90.6 % (94-100); MINUTE VOLUME 8 L/min; PATIENT TEMPERATURE 37.4; PEEP 5 cm H2O; RESPIRATORY RATE 0 b/min; RESPIRATORY RATE (OBSERVED) 29 b/min; TIDAL VOLUME 306 mL; TOTAL HEMOGLOBIN 9.9 G/dl (12.0-16.0)
[2019-02-07] MEDS: potassium Cl 20mEq/100mL bag 100 ML IV PRN ×4 (05:21→10:33)
[2019-02-07] MEDS: NORepinephrine 8mg/ 250ml NS 250 ML IV SCH ×2 (05:23→22:06)
[2019-02-07] MEDS: methylnaltrexone br 12mg/0.6ml inj***SubQ only SQ SCH (06:56)
[2019-02-07] MEDS: lactobacillus rhamnosus 10,000 MMU CELLS/CAPSULE OGT SCH ×2 (08:00→20:05)
[2019-02-07] MEDS: furosemide 20 MG/2 ML vial IV SCH ×2 (08:00→20:04)
[2019-02-07] MEDS: amiodarone 200mg tablet PO SCH ×2 (08:00→20:06)
[2019-02-07] MEDS: MEROPENEM 500MG/50ML-NS IVPB 50 ML IV SCH ×2 (08:00→16:29)
[2019-02-07] MEDS: hydrocortisone sod succ/PF 100mg/2ml inj. IV SCH ×2 (08:00→20:03)
[2019-02-07] MEDS: aspirin 81mg tab.chew OGT SCH (08:00)
[2019-02-07] MEDS: atorvastatin 20mg tablet OGT SCH (08:00)
[2019-02-07] MEDS: apixaban 2.5mg tablet PO SCH ×2 (08:00→20:06)
[2019-02-07] MEDS: famotidine 20mg tablet PO SCH ×2 (08:00→20:05)
[2019-02-07] MEDS: levoTHYROXINE 75mcg tablet OGT SCH (08:00)
[2019-02-07] MEDS: ondansetron/PF 4mg/2ml inj IV PRN (10:00)
--- NOTE | 2019-02-07 10:30 | NUR ---
During rounds, Dr. Patel made aware of heart rate in the 110s-130s; no new orders and continue PO Amiodarone. Pt failed weaning parameters this AM, will try again this afternoon. Restart tube feeding per MD; was on hold this AM with the expectation to extubate. Patient otherwise doing well and more alert and oriented than yesterday. Will continue to monitor.
--- NOTE | 2019-02-07 12:11 | NUR ---
Reassessment: Pt tolerating TF at goal. MAP improved to 71 receiving relistor and reglan to start today per LBSonja 02/06. Will continue to monitor. Rec: 1. Resume increasing OGTF to goal rate when MAP is at least 65 and with gastric residual volume WNL using Vital High Protein at 65ml/hr goal; to provide 1560ml fluid, 1560kcals, 1310ml free water, and 137g protein. 2. water flush 100 ml q 4 hours 3. PALB Q /; daily wts 4. recommend to continue mu-opioid receptor antagonist, continue bowel care 5. when extubated, advance diet as medically indicated to heart healthy Addendum: 02/07/19 at [address] Amended: Links added.
[2019-02-07] MEDS: FENTANYL-0.9 % NACL/PF 100 ML IV PRN (13:37)
[2019-02-07] MEDS: metoclopramide 5 mg/ml inj IV SCH ×2 (13:40→20:04)
[2019-02-07] MEDS: insulin glargine (Lantus) pen - multi-dose SQ SCH (20:16)
[2019-02-07] MEDS: tamsulosin 0.4mg capsule PO SCH (20:22)
[2019-02-08] VITALS (24 sets, daily range): BP systolic 117–160; BP diastolic 42–95
[2019-02-08] MEDS: MEROPENEM 500MG/50ML-NS IVPB 50 ML IV SCH ×4 (00:04→23:45)
[2019-02-08] MEDS: ipratropium/albuterol 3ml nebule NEB SCH ×6 (02:23→22:40)
[2019-02-08] MEDS: mineral oil/petrolatum ophthal oint EACHEYE SCH ×2 (03:11→08:00)
[2019-02-08] MEDS: insulin regular, human vial - multi-dose SQ SCH (03:12)
[2019-02-08] MEDS: metoclopramide 5 mg/ml inj IV SCH ×4 (03:16→20:37)
[2019-02-08 03:27] LABS: BASOPHILS % (AUTO) 0 % (0-1); EOSINOPHILS % (AUTO) 0.1 % (0-6); HEMATOCRIT 26.7 % (35.0-45.0); HEMOGLOBIN 8.9 g/dl (12.0-16.0); LYMPHOCYTES # (AUTO) 0.6 X10'3 (1.1-4.8); LYMPHOCYTES % (AUTO) 3.7 % (21-51); MEAN CORPUSCULAR HEMOGLOBIN 32.1 PG (27.0-31.0); MEAN CORPUSCULAR HGB CONC 33.3 g/dL (33.0-36.5); MEAN CORPUSCULAR VOLUME 96.5 FL (78-98); MONOCYTES # (AUTO) 0.4 X10'3 (0-0.9); MONOCYTES % (AUTO) 2.8 % (2-12); NEUTROPHILS % (AUTO) 93.4 % (42-75); PLATELET COUNT 102 X10'3 (140-440); RED BLOOD COUNT 2.77 X10'6 (4.20-5.60); RED CELL DISTRIBUTION WIDTH 15.2 % (11.5-14.5)
[2019-02-08 03:31] LABS: ALANINE AMINOTRANSFERASE 47 U/L (12-78); ALBUMIN 1.4 G/DL (3.4-5.0); ALBUMIN/GLOBULIN RATIO 0.4 (1.1-1.5); ALKALINE PHOSPHATASE 101 IU/L (46-116); ANION GAP 10 (8-16); ASPARTATE AMINO TRANSFERASE 37 U/L (10-37); BILIRUBIN,TOTAL 0.4 MG/DL (0.1-1.0); BLOOD UREA NITROGEN 60 MG/DL (7-18); BUN/CREATININE RATIO 41.1 (6.6-38.0); CALCIUM 7.9 MG/DL (8.5-10.1); CHLORIDE 110 MMOL/L (99-107); CREATININE 1.46 MG/DL (0.40-0.90); GLUCOSE 145 MG/DL (70-104); POTASSIUM 3.6 MMOL/L (3.5-5.1); SODIUM 147 MMOL/L (135-145); TOTAL CARBON DIOXIDE 27.4 MMOL/L (24-32); TOTAL PROTEIN 4.6 G/DL (6.4-8.2); eGFR 34 ML/MIN
[2019-02-08 04:34] LABS: NUCLEATED RED BLOOD CELLS 3 /100WBC (0-0); PLATELET ESTIMATE DECREASED; POLYCHROMASIA FEW; TOTAL CELLS COUNTED 100
[2019-02-08 04:46] LABS: ABG BASE EXCESS 2.1 mmol/L (-2.0-3.0); ABG HCO3 25.2 mmol/L (22.0-26.0); ABG OXYGEN SATURATION 91.9 % (95-98); ABG PCO2 (T) 34.4 mmHg (35.0-45.0); ABG PH (T) 7.484 (7.350-7.450); ABG PO2 (T) 67.2 mmHg (83-108); FCOHb 0.3 % (0.5-1.5); FO2Hb 91.6 % (94-100); MINUTE VOLUME 8 L/min; PATIENT TEMPERATURE 37.5; PEEP 5 cm H2O; RESPIRATORY RATE 14 b/min; RESPIRATORY RATE (OBSERVED) 20 b/min; TIDAL VOLUME 400 mL; TOTAL HEMOGLOBIN 10.1 G/dl (12.0-16.0)
--- NOTE | 2019-02-08 06:30 | NUR ---
Patient in room ICU 2039. I have received report from Fredy ZELAYA and had the opportunity to ask questions and assume patient care.
[2019-02-08] MEDS: hydrocortisone sod succ/PF 100mg/2ml inj. IV SCH ×2 (08:18→20:37)
[2019-02-08] MEDS: apixaban 2.5mg tablet PO SCH ×2 (08:19→20:00)
[2019-02-08] MEDS: lactobacillus rhamnosus 10,000 MMU CELLS/CAPSULE OGT SCH ×2 (08:19→20:00)
[2019-02-08] MEDS: amiodarone 200mg tablet PO SCH ×2 (08:19→20:00)
[2019-02-08] MEDS: aspirin 81mg tab.chew OGT SCH (08:19)
[2019-02-08] MEDS: atorvastatin 20mg tablet OGT SCH (08:19)
[2019-02-08] MEDS: levoTHYROXINE 75mcg tablet OGT SCH (08:19)
[2019-02-08] MEDS: furosemide 20 MG/2 ML vial IV SCH ×2 (08:20→20:37)
[2019-02-08] MEDS ORDERED: furosemide 40mg/4ml inj IV ONE (08:40)
[2019-02-08] MEDS: famotidine 10mg tablet PO SCH ×2 (09:03→20:00)
[2019-02-08] MEDS: HYDROmorphone inj. 0.5 MG/0.5 ML DISP.SYRIN IV PRN ×2 (10:30→14:49)
--- NOTE | 2019-02-08 11:00 | NUR ---
gave pt IV pepcid in place of PO pepcid since pt had not yet passed swallow eval.
--- NOTE | 2019-02-08 11:30 | NUR ---
checked pt blood glucose and it was 50. D 50 given rechecked BG and it was 98. will continue to monitor.
[2019-02-08] MEDS: dextrose 50%-water 50ml dispensing syringe IV PRN ×3 (11:38→20:54)
[2019-02-08] MEDS ORDERED: famotidine/PF 10 mg/ml inj IV ONE (12:05)
--- NOTE | 2019-02-08 18:56 | NUR ---
Problems reprioritized. Patient report given, questions answered & plan of care reviewed with Fredy ZELAYA.
[2019-02-08 19:28] LABS: CLARITY,URINE CLOUDY (Clear); COLOR,URINE RED (Yellow); GLUCOSE, URINE NEGATIVE (Neg); KETONES,URINE NEGATIVE (Neg); LEUKOCYTE ESTERASE ,URINE TRACE (Neg); NITRITES, URINE NEGATIVE (Neg); OCCULT BLOOD,URINE LARGE (Neg); PH,URINE 5.5 (4.8-8.0); PROTEIN,URINE 30 mg/dl (Neg); UROBILINOGEN,URINE 0.2 E.U/dL (0.2-1.0)
--- NOTE | 2019-02-08 19:30 | NUR ---
CALL FROM PATIENTS DAUGHTER - BLAKE. I EXPLAINED THAT I WOULD BE WATCHING RESPIRATORY STATUS THIS SHIFT. BLAKE SEEMED A BIT CONFUSED ABOUT CODE STATUS. I TOLD BLAKE THAT HER MOM NOW IS A FULL CODE PER ORDER AND IF THEY WOULD LIKE TO MODIFY OUR RESPONSE TO AN EMERGENT SITUATION REGARDING HE MOTHER THAT SHE CAN SPEAK TO MARISOL ORO. BLAKE SAID SHE WILL SPEAK TO DR SELLERS IN THE MORNING. SHE IS AWARE THAT IF WE NEED TO INTUBATE - FULL CODE STATUS WOULD REQUIRE THE INTUBATION. I HUNG UP AND ASKED THE PATIENT DIRECTLY IF SHE WOULD WANT OUR TEAM TO PUT IN ANOTHER ETT IF HER BREATHING WERE TO DECLINE. PATIENT SAID YES THAT SHE WOULD AGREE TO THAT. ALTHOUGH PATIENT IS CONFUSED TO TIME SHE IS APPROPRIATE/SEVERELY WEAK BUT I FELT LIKE THE PATIENT UNDERSTOOD WHAT I WAS ASKING HER.
[2019-02-08 19:37] LABS: UA COLLECTION TYPE VOIDED
--- NOTE | 2019-02-08 19:45 | NUR ---
UPDATED MARISOL SEVERINO NP REGARDING MY CONCERNS. - THE PATIENTS WOB-- MARISOL WAS ALSO AT BEDSIDE DURING THE UPDATE. MY CONCERN WAS REGARDING BEDSIDE SWALLOW EVAL. UPON ASSESSMENT, PATIENT VISIBLY APPEARS TO BE INCREASED WOB/ACCESSORY MUSCLES USE. WHEN I ASKED PATIENT SHE DOES NOT COMPLAIN OF RESP DISTRESS OR DISCOMFORT OF ANY KIND. SATS ARE RUNNING LOW 90'S. I DID NOT FEEL PATIENT WOULD BE SAFE COMPLETING A BEDSIDE SWALLOW EVAL DUE TO THE INCREASE WOB. I DID NOT REMOVE THE BIPAP MASK SO TO NOT SET THE PATIENT BACK RESPIRATORY-SMART. I EXPLAINED TO MARISOL orosco THAT THIS WOULD MEAN HOLDING PATIENTS AMIODARONE AND ELOQUIS. MARISOL WAS OK WITH MISSING THESE DOSES DT NPO STATUS AND AGREED THAT A BEDSIDE SWALLOW IS NOT APPROPRIATE AT THIS TIME. Addendum: 02/09/19 at 1840 by Fredy Newby RN late addendum to this note. i asked marisol severino np during the above conversation if perhaps an abg was called for . marisol said to wait until the morning abg.
[2019-02-08 19:54] LABS: RBC,URINE TNTC /HPF (0-2)
[2019-02-08 19:57] LABS: BACTERIA,URINE NONE SEEN /HPF (Neg); SQUAMOUS EPITHELIAL CELL,UR FEW /LPF (FEW); TRANSITIONAL EPI CELLS,URINE FEW /HPF; YEAST FEW /HPF (NEGATIVE)
[2019-02-08] MEDS: tamsulosin 0.4mg capsule PO SCH (20:46)
[2019-02-08] MEDS: Dextrose 10%-water IV solution 1,000 ML IV SCH (21:05)
[2019-02-09] VITALS (23 sets, daily range): BP systolic 104–176; BP diastolic 49–92
--- NOTE | 2019-02-09 00:45 | NUR ---
PATIENTS CAPILLARY BLOOD GLUCOSE READ 53. I OBTAINED A BG FROM THE CVP WITH D10 ON HOLD, FLUSH 3 MLS THEN BG 167. SUGGESTED BY DRUG ABUSE PROGRAM COORDINATOR TO FLUSH W 10 ML NS THEN OBTAIN. THE THIRD BG 76. I RECORDED 76 WHICH NEEDED NO ACTION. I WILL PASS ALONG IN REPORT A SUGGESTION FOR OBTAINING BG. AT THE SAME TIME, PATIENTS DEMEANOR CHANGED. BEGINNING OF THE SHIFT SHE WAS DOCILE, COMPLIANT CONFUSED WITH DATE AND TIME BUT PLEASANT HOWEVER DURING MIDNIGHT ASSESSMENT, PATIENT WAS "COMBATIVE" IN EXTREMELY WEAK WAYS - RESISTANT TO CARE, PINCHING, VERY ANGRY VERBAGE BUT STILL VERY WEAK. PATIENT DENIED PAIN AND RESP DISTRESS ALTHOUGH STILL APPEARS TO BE WORKING HARD, WHEN I WAS GETTING THE BLOOD FOR THE GLUCOSE, I NOTICED THE BLOOD WAS VERY VERY DARK. I REQUESTED A STAT ABG TO SEE IF HYPOXIA WAS AN ISSUE. SAT PROBE HAVING VERY HARD TIME WITH WAVEFORM BUT A GOOD WAVE READS 89-92 %. ABG WAS TAKEN ON 35 % BI-PAP. Ph 7.485, pco2 35.3, pO2 58.2. RT INCREASED FIO2 TO 45 %. WILL CONTINUE TO MONITOR.
[2019-02-09 00:51] LABS: ABG BASE EXCESS 2.7 mmol/L (-2.0-3.0); ABG HCO3 25.9 mmol/L (22.0-26.0); ABG OXYGEN SATURATION 89.3 % (95-98); ABG PCO2 (T) 35.3 mmHg (35.0-45.0); ABG PH (T) 7.485 (7.350-7.450); ABG PO2 (T) 58.2 mmHg (83-108); FCOHb 0.3 % (0.5-1.5); FMetHb 0.1 % (0.3-1.12); FO2Hb 88.9 % (94-100); MINUTE VOLUME 30 L/min; PATIENT TEMPERATURE 37.5; RESPIRATORY RATE 20 b/min; RESPIRATORY RATE (OBSERVED) 39 b/min; TIDAL VOLUME 712 mL; TOTAL HEMOGLOBIN 10.8 G/dl (12.0-16.0)
[2019-02-09] MEDS: ipratropium/albuterol 3ml nebule NEB SCH ×6 (03:12→23:00)
[2019-02-09] MEDS: metoclopramide 5 mg/ml inj IV SCH ×5 (03:33→21:20)
[2019-02-09 03:39] LABS: ALBUMIN 1.6 G/DL (3.4-5.0); ANION GAP 9 (8-16); BLOOD UREA NITROGEN 54 MG/DL (7-18); BUN/CREATININE RATIO 42.5 (6.6-38.0); CALCIUM 8.3 MG/DL (8.5-10.1); CHLORIDE 112 MMOL/L (99-107); CREATININE 1.27 MG/DL (0.40-0.90); GLUCOSE 95 MG/DL (70-104); MAGNESIUM 1.7 MG/DL (1.5-2.4); PHOSPHORUS 4.3 MG/DL (2.3-4.5); SODIUM 151 MMOL/L (135-145); TOTAL CARBON DIOXIDE 29.8 MMOL/L (24-32); eGFR 40 ML/MIN
[2019-02-09 03:46] LABS: POTASSIUM 2.7 MMOL/L (3.5-5.1)
[2019-02-09] MEDS: potassium Cl 20mEq/100mL bag 100 ML IV PRN ×6 (04:07→23:56)
[2019-02-09 04:44] LABS: BASOPHILS % (AUTO) 0.1 % (0-1); EOSINOPHILS % (AUTO) 0 % (0-6); HEMATOCRIT 29.9 % (35.0-45.0); LYMPHOCYTES # (AUTO) 0.4 X10'3 (1.1-4.8); LYMPHOCYTES % (AUTO) 2.2 % (21-51); MEAN CORPUSCULAR HEMOGLOBIN 31.8 PG (27.0-31.0); MEAN CORPUSCULAR HGB CONC 33.4 g/dL (33.0-36.5); MEAN CORPUSCULAR VOLUME 95.1 FL (78-98); MEAN PLATELET VOLUME 11.2 FL (7.4-10.4); MONOCYTES # (AUTO) 0.4 X10'3 (0-0.9); MONOCYTES % (AUTO) 2.3 % (2-12); NEUTROPHILS # (AUTO) 18.3 X10'3 (1.8-7.7); NEUTROPHILS % (AUTO) 95.4 % (42-75); PLATELET COUNT 138 X10'3 (140-440); RED BLOOD COUNT 3.14 X10'6 (4.20-5.60); RED CELL DISTRIBUTION WIDTH 15.5 % (11.5-14.5); WHITE BLOOD COUNT 19.2 X10'3 (4.5-11.0)
--- NOTE | 2019-02-09 04:44 | NUR ---
CALL TO Na ALANIS, PREETHI - PATIENTS BG CONSISTANTLY A CRITICAL LOW - THEN WE GIVE D50 PER PROTOCOL WHICH RESOLVES THE LOW BG AT THE TIME HOWEVER EVERY 2 HOURS PATIENT HAS BEEN GETTING D50. I SUGGESTED PERHAPS D10 INFUSION UNTIL PERHAPS THE LANTUS FROM LAST NIGHT WEARS OFF. I DID NOT GIVE ANY INSULIN OF ANY KIND. D10 WAS HUNG AT 30 ML/HR VIA PICC LINE.
--- NOTE | 2019-02-09 06:45 | NUR ---
Patient in room ICU 2039. I have received report from GARCIA Daniel and had the opportunity to ask questions and assume patient care.
[2019-02-09] MEDS: apixaban 2.5mg tablet PO SCH ×2 (07:47→21:21)
[2019-02-09] MEDS: atorvastatin 20mg tablet OGT SCH (07:47)
[2019-02-09] MEDS: lactobacillus rhamnosus 10,000 MMU CELLS/CAPSULE OGT SCH ×2 (07:47→21:20)
[2019-02-09] MEDS: famotidine 10mg tablet PO SCH ×2 (07:47→21:30)
[2019-02-09] MEDS: levoTHYROXINE 75mcg tablet OGT SCH (07:47)
[2019-02-09] MEDS: aspirin 81mg tab.chew OGT SCH (07:47)
[2019-02-09] MEDS: amiodarone 200mg tablet PO SCH ×2 (07:47→21:21)
[2019-02-09] MEDS: furosemide 20 MG/2 ML vial IV SCH ×3 (07:56→21:19)
[2019-02-09] MEDS: hydrocortisone sod succ/PF 100mg/2ml inj. IV SCH (07:57)
[2019-02-09] MEDS: MEROPENEM 500MG/50ML-NS IVPB 50 ML IV SCH ×2 (07:57→16:24)
[2019-02-09] MEDS: methylnaltrexone br 12mg/0.6ml inj***SubQ only SQ SCH (07:57)
[2019-02-09] MEDS ORDERED: VANCOMYCIN LEVEL IV ONE (08:30)
[2019-02-09] MEDS: HYDROmorphone inj. 0.5 MG/0.5 ML DISP.SYRIN IV PRN ×4 (08:36→21:51)
--- NOTE | 2019-02-09 08:45 | NUR ---
family at bedside discussing plan of care. patient will receive NG tube for feeding and medications and will be reintubated if we think it is necessary. patient remains a full code
[2019-02-09] MEDS ORDERED: furosemide 40mg/4ml inj IV ONE (09:50)
[2019-02-09] MEDS ORDERED: VANCOmycin 1250MG/NS 250ml Bag 250 ML IV SCH (11:00)
[2019-02-09] MEDS: methylPREDNISolone sod succ 125mg/2ml vial IV SCH ×2 (14:08→21:20)
[2019-02-09] MEDS: tamsulosin 0.4mg capsule PO SCH (21:00)
--- NOTE | 2019-02-09 21:39 | NUR ---
luana thorpe would not scanned - i called and told david in pharmacy. Addendum: 02/09/19 at 2144 by Fredy Newby RN this note closed unexpectedly. luana thorpe will not scan. i have called david in pharmacy to let her know and ask her to fix it for the next rn. i bypassed the scanning portion and has another RN (Flaca ZELAYA) check the 7 rights with me for this particular med.
[2019-02-10] VITALS (24 sets, daily range): BP systolic 122–157; BP diastolic 50–92
[2019-02-10] MEDS: ipratropium/albuterol 3ml nebule NEB SCH ×7 (00:19→23:20)
[2019-02-10] MEDS: MEROPENEM 500MG/50ML-NS IVPB 50 ML IV SCH ×2 (00:23→08:47)
[2019-02-10] MEDS: methylPREDNISolone sod succ 125mg/2ml vial IV SCH ×4 (01:42→20:44)
[2019-02-10] MEDS: metoclopramide 5 mg/ml inj IV SCH ×3 (01:44→20:44)
[2019-02-10] MEDS: HYDROmorphone inj. 0.5 MG/0.5 ML DISP.SYRIN IV PRN ×3 (01:44→20:44)
[2019-02-10] MEDS: furosemide 20 MG/2 ML vial IV SCH ×4 (01:44→20:43)
[2019-02-10 02:38] LABS: BASOPHILS % (AUTO) 0.1 % (0-1); EOSINOPHILS % (AUTO) 0 % (0-6); HEMATOCRIT 32.2 % (35.0-45.0); HEMOGLOBIN 10.4 g/dl (12.0-16.0); LYMPHOCYTES # (AUTO) 0.5 X10'3 (1.1-4.8); LYMPHOCYTES % (AUTO) 2.5 % (21-51); MEAN CORPUSCULAR HEMOGLOBIN 31.6 PG (27.0-31.0); MEAN CORPUSCULAR HGB CONC 32.4 g/dL (33.0-36.5); MEAN CORPUSCULAR VOLUME 97.4 FL (78-98); MEAN PLATELET VOLUME 11.1 FL (7.4-10.4); MONOCYTES # (AUTO) 0.3 X10'3 (0-0.9); MONOCYTES % (AUTO) 1.5 % (2-12); NEUTROPHILS # (AUTO) 18.8 X10'3 (1.8-7.7); NEUTROPHILS % (AUTO) 95.9 % (42-75); PLATELET COUNT 184 X10'3 (140-440); RED BLOOD COUNT 3.31 X10'6 (4.20-5.60); RED CELL DISTRIBUTION WIDTH 15.8 % (11.5-14.5); WHITE BLOOD COUNT 19.6 X10'3 (4.5-11.0)
[2019-02-10 02:50] LABS: ALBUMIN 1.6 G/DL (3.4-5.0); ANION GAP 6 (8-16); BLOOD UREA NITROGEN 56 MG/DL (7-18); BUN/CREATININE RATIO 38.9 (6.6-38.0); CALCIUM 7.7 MG/DL (8.5-10.1); CHLORIDE 111 MMOL/L (99-107); CREATININE 1.44 MG/DL (0.40-0.90); GLUCOSE 237 MG/DL (70-104); MAGNESIUM 1.6 MG/DL (1.5-2.4); PHOSPHORUS 4.8 MG/DL (2.3-4.5); POTASSIUM 3.8 MMOL/L (3.5-5.1); SODIUM 150 MMOL/L (135-145); eGFR 35 ML/MIN
[2019-02-10] MEDS: Dextrose 10%-water IV solution 1,000 ML IV SCH (03:37)
[2019-02-10] MEDS: lactobacillus rhamnosus 10,000 MMU CELLS/CAPSULE OGT SCH ×2 (08:48→20:47)
[2019-02-10] MEDS: atorvastatin 20mg tablet OGT SCH (08:48)
[2019-02-10] MEDS: levoTHYROXINE 75mcg tablet OGT SCH (08:48)
[2019-02-10] MEDS: aspirin 81mg tab.chew OGT SCH (08:49)
[2019-02-10] MEDS: apixaban 2.5mg tablet PO SCH (08:49)
[2019-02-10] MEDS: amiodarone 200mg tablet PO SCH (08:49)
[2019-02-10] MEDS: famotidine 10mg tablet PO SCH (08:50)
--- NOTE | 2019-02-10 09:09 | NUR ---
Pepcid was not scannable
[2019-02-10] MEDS ORDERED: insulin Lispro (HumaLOG) vial - multi-dose SQ SCH (09:20)
[2019-02-10] MEDS ORDERED: dextrose ORAL solution 15 GM/59 ML bottle OGT PRN ×2 (09:56→09:57)
[2019-02-10] MEDS: insulin regular, human vial - multi-dose SQ SCH ×3 (10:39→20:58)
[2019-02-10] MEDS: amiodarone 200mg tablet OGT SCH (20:45)
[2019-02-10] MEDS: famotidine 10mg tablet OGT SCH (20:46)
[2019-02-10] MEDS: apixaban 2.5mg tablet OGT SCH (20:47)
[2019-02-10] MEDS: tamsulosin 0.4mg capsule PO SCH (20:48)
[2019-02-10] MEDS: insulin glargine (Lantus) pen - multi-dose SQ SCH ×2 (20:54→20:57)
--- NOTE | 2019-02-10 23:00 | NUR ---
tape to [facility] changed. site is [facility]. new tape appliied. there is no reference for the 2 black lines in the corpack tubing to accurately measure (2 lines on distal end of tubing outside the patient). i can not tell how far away the one black line is because it is with in the patient. i marked on the corpack tubing with a sharpee the "entry at the nare". there are no numbers on the tubing. consulted charge nurse as well.
[2019-02-11] VITALS (22 sets, daily range): BP systolic 126–168; BP diastolic 45–76
--- NOTE | 2019-02-11 01:15 | NUR ---
patient was changed to hi-flow for mouth care and re-taping of the corpack near 2250. i did give patient 2-3 small ice chips with no complications. after mouth care and corpack retape, patient VSS. i asked if she wanted a break from bi-pap mask and she agreed. patient last on 15 l hi-flow with no complications until i was in the room at 0030 and she was trying to tell me a long story, got winded and dropped her sats to 79. immediately bipap replaced at the 55 % and same settings. Patient recovers with in minutes. VS remained stable except the O2 sats. Patient denies pain and after a few minutes on bi-pap, breathing returns to patient base line. WOB is increased than "normal" but improved in reference to patients breathing since being extubated. After dilaudid doses, patient breaths more comfortable and appears more comfortable. it does not effect her vital signs negatively. currently patient is sleeping with bipap on, no distress, no c/o pain and vss
[2019-02-11] MEDS: methylPREDNISolone sod succ 125mg/2ml vial IV SCH ×4 (02:30→19:43)
[2019-02-11] MEDS: furosemide 20 MG/2 ML vial IV SCH ×2 (02:30→07:28)
[2019-02-11] MEDS: metoclopramide 5 mg/ml inj IV SCH ×4 (02:30→19:43)
[2019-02-11] MEDS: HYDROmorphone inj. 0.5 MG/0.5 ML DISP.SYRIN IV PRN ×5 (02:31→18:44)
[2019-02-11] MEDS: insulin regular, human vial - multi-dose SQ SCH ×4 (02:35→23:44)
[2019-02-11 02:56] LABS: BASOPHILS % (AUTO) 0.1 % (0-1); EOSINOPHILS % (AUTO) 0 % (0-6); HEMATOCRIT 28.5 % (35.0-45.0); HEMOGLOBIN 9.5 g/dl (12.0-16.0); LYMPHOCYTES # (AUTO) 0.3 X10'3 (1.1-4.8); LYMPHOCYTES % (AUTO) 1.5 % (21-51); MEAN CORPUSCULAR HEMOGLOBIN 31.8 PG (27.0-31.0); MEAN CORPUSCULAR HGB CONC 33.2 g/dL (33.0-36.5); MEAN CORPUSCULAR VOLUME 95.8 FL (78-98); MEAN PLATELET VOLUME 10.7 FL (7.4-10.4); MONOCYTES # (AUTO) 0.3 X10'3 (0-0.9); MONOCYTES % (AUTO) 1.7 % (2-12); NEUTROPHILS # (AUTO) 19.6 X10'3 (1.8-7.7); NEUTROPHILS % (AUTO) 96.7 % (42-75); PLATELET COUNT 198 X10'3 (140-440); RED BLOOD COUNT 2.98 X10'6 (4.20-5.60); RED CELL DISTRIBUTION WIDTH 15.6 % (11.5-14.5); WHITE BLOOD COUNT 20.3 X10'3 (4.5-11.0)
[2019-02-11 03:07] LABS: ALBUMIN 1.5 G/DL (3.4-5.0); ANION GAP 5 (8-16); BLOOD UREA NITROGEN 69 MG/DL (7-18); BUN/CREATININE RATIO 52.7 (6.6-38.0); CALCIUM 7.8 MG/DL (8.5-10.1); CHLORIDE 115 MMOL/L (99-107); CREATININE 1.31 MG/DL (0.40-0.90); GLUCOSE 219 MG/DL (70-104); MAGNESIUM 1.7 MG/DL (1.5-2.4); PHOSPHORUS 3.3 MG/DL (2.3-4.5); TOTAL CARBON DIOXIDE 39.7 MMOL/L (24-32); eGFR 39 ML/MIN
[2019-02-11 03:10] LABS: SODIUM 160 MMOL/L (135-145)
[2019-02-11 03:11] LABS: POTASSIUM 2.8 MMOL/L (3.5-5.1)
[2019-02-11] MEDS: potassium Cl 20mEq/100mL bag 100 ML IV PRN ×4 (03:14→11:11)
[2019-02-11] MEDS: ipratropium/albuterol 3ml nebule NEB SCH ×6 (03:16→23:09)
[2019-02-11 04:10] LABS: LARGE PLATELETS FEW; PLATELET ESTIMATE NORMAL
[2019-02-11] MEDS: apixaban 2.5mg tablet OGT SCH ×2 (07:28→19:43)
[2019-02-11] MEDS: levoFLOXACIN-Levaquin 250mg/D5 50 ML IV SCH (07:28)
[2019-02-11] MEDS: amiodarone 200mg tablet OGT SCH ×2 (07:28→19:43)
[2019-02-11] MEDS: aspirin 81mg tab.chew OGT SCH (07:28)
[2019-02-11] MEDS: lactobacillus rhamnosus 10,000 MMU CELLS/CAPSULE OGT SCH ×2 (07:28→19:43)
[2019-02-11] MEDS: famotidine 10mg tablet OGT SCH ×2 (07:29→19:43)
[2019-02-11] MEDS: atorvastatin 20mg tablet OGT SCH (07:29)
[2019-02-11] MEDS: levoTHYROXINE 75mcg tablet OGT SCH (07:29)
[2019-02-11] MEDS ORDERED: desmopressin 0.1mg/ml nasal spray 5ml btl NS ONE (08:20)
[2019-02-11] MEDS: methylnaltrexone br 12mg/0.6ml inj***SubQ only SQ SCH (08:57)
--- NOTE | 2019-02-11 13:11 | NUR ---
Reassessment: Pt is extubated, tolerating TF at goal through [facility]. Patient has been diuresing, Sodium became elevated at 160, there is a new nursing order to provide 300 ml water flush q 4 hours. Noted that prior patient had water flush recommendations of 100 q 4 and had stopped on 02/08 without resuming, two days without receiving flushes. receiving relistor and reglan, LBM 02/07. Will continue to monitor. Rec: 1. Resume increasing OGTF to goal rate when MAP is at least 65 and with gastric residual volume WNL using Vital High Protein at 65ml/hr goal; to provide 1560ml fluid, 1560kcals, 1310ml free water, and 137g protein. 2. water flush 300 ml q 4 hours per MD 3. PALB Q ; daily wts 4. recommend to continue mu-opioid receptor antagonist, continue bowel care Addendum: 02/11/19 at [address] Amended: Links added.
--- NOTE | 2019-02-11 15:26 | NUR ---
put on HFNC and took a break from BIPAP for a bit, tolerated well for around 5 minutes, family at the bedside and attentive to pt, without BIPAP on pt was trying to talk more to her family, was able to state "im hot all the time", removed blankets and pillows, sats started dipping into 83-85%, had pt do some cough and deep breathing which improved sats to 85-87%, pt had increasing WOB, put BIPAP back on after 10 minutes, turned BIPAP O2 up to 100% until sats recovered in the low 90's, recovery was about 30 minutes.
[2019-02-11 16:43] LABS: POTASSIUM 3.5 MMOL/L (3.5-5.1)
--- NOTE | 2019-02-11 17:03 | NUR ---
Called Dr. Patel to notify of critical Na+ of 161, obtained new orders to stop the lasix and start D5W at 70 mls/hr. Will continue to monitor closely.
[2019-02-11] MEDS: dextrose 5%-water 1,000 ML IV SCH (17:09)
[2019-02-11] MEDS: tamsulosin 0.4mg capsule PO SCH (19:43)
[2019-02-11] MEDS ORDERED: furosemide 20 MG/2 ML vial IV SCH (20:00)
[2019-02-11] MEDS: insulin glargine (Lantus) pen - multi-dose SQ SCH (23:43)
[2019-02-12] VITALS (18 sets, daily range): BP systolic 132–156; BP diastolic 49–76
[2019-02-12] MEDS: methylPREDNISolone sod succ 125mg/2ml vial IV SCH ×2 (02:15→07:51)
[2019-02-12] MEDS: metoclopramide 5 mg/ml inj IV SCH ×2 (02:16→07:51)
[2019-02-12] MEDS: ipratropium/albuterol 3ml nebule NEB SCH ×3 (02:43→12:25)
[2019-02-12] MEDS: insulin regular, human vial - multi-dose SQ SCH ×2 (02:47→08:18)
[2019-02-12 03:14] LABS: BASOPHILS % (AUTO) 0.1 % (0-1); EOSINOPHILS % (AUTO) 0 % (0-6); HEMATOCRIT 27.8 % (35.0-45.0); HEMOGLOBIN 9.1 g/dl (12.0-16.0); LYMPHOCYTES # (AUTO) 0.5 X10'3 (1.1-4.8); LYMPHOCYTES % (AUTO) 2.2 % (21-51); MEAN CORPUSCULAR HEMOGLOBIN 31.3 PG (27.0-31.0); MEAN CORPUSCULAR HGB CONC 32.6 g/dL (33.0-36.5); MEAN CORPUSCULAR VOLUME 96.1 FL (78-98); MEAN PLATELET VOLUME 10.6 FL (7.4-10.4); MONOCYTES # (AUTO) 0.4 X10'3 (0-0.9); MONOCYTES % (AUTO) 1.8 % (2-12); NEUTROPHILS # (AUTO) 21.7 X10'3 (1.8-7.7); NEUTROPHILS % (AUTO) 95.9 % (42-75); PLATELET COUNT 201 X10'3 (140-440); RED BLOOD COUNT 2.89 X10'6 (4.20-5.60); RED CELL DISTRIBUTION WIDTH 15.9 % (11.5-14.5); WHITE BLOOD COUNT 22.6 X10'3 (4.5-11.0)
[2019-02-12 03:15] LABS: ALBUMIN 1.5 G/DL (3.4-5.0); ANION GAP 3 (8-16); BLOOD UREA NITROGEN 66 MG/DL (7-18); BUN/CREATININE RATIO 55.5 (6.6-38.0); CALCIUM 7.6 MG/DL (8.5-10.1); CHLORIDE 113 MMOL/L (99-107); CREATININE 1.19 MG/DL (0.40-0.90); GLUCOSE 275 MG/DL (70-104); MAGNESIUM 1.6 MG/DL (1.5-2.4); PHOSPHORUS 3.2 MG/DL (2.3-4.5); POTASSIUM 3.1 MMOL/L (3.5-5.1); eGFR 43 ML/MIN
[2019-02-12 03:17] LABS: SODIUM 156 MMOL/L (135-145); TOTAL CARBON DIOXIDE 40.2 MMOL/L (24-32)
--- NOTE | 2019-02-12 06:40 | NUR ---
Patient in room ICU 2039. I have received report from Fredy ZELAYA and had the opportunity to ask questions and assume patient care.
[2019-02-12] MEDS: dextrose 5%-water 1,000 ML IV SCH (07:49)
[2019-02-12] MEDS: levoFLOXACIN-Levaquin 250mg/D5 50 ML IV SCH (07:49)
[2019-02-12] MEDS: famotidine 10mg tablet OGT SCH (07:51)
[2019-02-12] MEDS: aspirin 81mg tab.chew OGT SCH (07:52)
[2019-02-12] MEDS: amiodarone 200mg tablet OGT SCH (07:52)
[2019-02-12] MEDS: atorvastatin 20mg tablet OGT SCH (07:52)
[2019-02-12] MEDS: levoTHYROXINE 75mcg tablet OGT SCH (07:52)
[2019-02-12] MEDS: apixaban 2.5mg tablet OGT SCH (07:52)
[2019-02-12] MEDS: lactobacillus rhamnosus 10,000 MMU CELLS/CAPSULE OGT SCH (07:52)
--- NOTE | 2019-02-12 08:00 | NUR ---
I agree with [place]: Cathy ZELAYA's Physical Assessment.
[2019-02-12] MEDS ORDERED: VANCOMYCIN LEVEL IV ONE (10:30)
[2019-02-12] MEDS: HYDROmorphone inj. 0.5 MG/0.5 ML DISP.SYRIN IV PRN (11:03)
[2019-02-12] MEDS ORDERED: LORazepam 2 mg/ml vial IV PRN (11:40)
[2019-02-12] MEDS: morphine 10mg/ml inj. IV PRN ×4 (12:16→18:27)
--- NOTE | 2019-02-12 14:58 | NUR ---
Wound care POC. Arrived at bedside for assessment. Pt has changed status to comfort care so no assessment done at this time. Will monitor for any additional needs to keep pt comfortable. Addendum: 02/12/19 at 1459 by Anant Warner RN Amended: Links added.
--- NOTE | 2019-02-12 16:16 | NUR ---
patient off bipap on 2lpm o2 for comfort care Addendum: 02/12/19 at 1617 by Adele Ahumada RT Amended: Links added.
--- NOTE | 2019-02-12 18:15 | NUR ---
Patient in room ICU 2039. I have received report from Pipo ZELAYA and Cathy ZELAYA and had the opportunity to ask questions and assume patient care. Patient is on comfort care and is obtunded. Family at bedside.
--- NOTE | 2019-02-12 18:17 | NUR ---
Problems reprioritized. Patient report given, questions answered & plan of care reviewed with Maty ZELAYA.
--- NOTE | 2019-02-12 18:50 | NUR ---
RN IS TO DOCUMENT YES TO ALL APPLICABLE AREAS Pronouncement of : 1. Time Physician Notified: 1844 2. Date of :02/12/19 3. Time of : 1844 4. DNR/Withdraw life support documented: yes 5. Monitor strip has been placed on chart: Yes 6. Assessment process is of one-minute duration and includes following criteria: a) Patient is unresponsive to all stimuli: yes b) Pupils fixed and non-reactive:yes c) Auscultation of precordium reveals absence of heart tones: yes d) Auscultation of lungs reveals absence of breath sounds: yes e) Absence of blood pressure / all vital signs: yes f) QRS complexes are not present on monitor / EKG strip: yes g) Pacer spikes without capture: NA 4. Comments: Patient's family was at bedside.
--- NOTE | 2019-02-12 18:53 | NUR ---
Patient in room ICU 2039. I have received report from Rosey ZELAYA and Cathy ZELAYA and had the opportunity to ask questions and assume patient care. Patient resting on comfort care. Family is at bedside. Will continue to monitor closely.
== END 2019-02-12 18:45 | disposition expired | DRG 853 ==
LOC: ER 13:18 → UNDOADMIN 14:52 → ICU 2S 14:52 → ED HOLD 14:52 → ICU 2S 21:13 → ED HOLD 21:13 → CMPBEDREQ 21:18
PROVIDERS: ADMIT Internal Medicine; ATTEND Internal Medicine Critical Care Medicine
PROC: 0T768DZ Dilation of Right Ureter with Intraluminal Device, Via Natural or Artificial Opening Endoscopic (ICD-10-PCS; principal; 2019-01-29 19:10)
PROC: 5A1955Z Respiratory Ventilation, Greater than 96 Consecutive Hours (ICD-10-PCS; 2019-01-30)
PROC: 0BH17EZ Insertion of Endotracheal Airway into Trachea, Via Natural or Artificial Opening (ICD-10-PCS; 2019-01-30)
PROC: 5A09357 Assistance with Respiratory Ventilation, Less than 24 Consecutive Hours, Continuous Positive Airway Pressure (ICD-10-PCS; 2019-01-30)
PROC: 02HV33Z Insertion of Infusion Device into Superior Vena Cava, Percutaneous Approach (ICD-10-PCS; 2019-02-03)
PROC: B548ZZA Ultrasonography of Superior Vena Cava, Guidance (ICD-10-PCS; 2019-02-03)
PROC: 5A09357 Assistance with Respiratory Ventilation, Less than 24 Consecutive Hours, Continuous Positive Airway Pressure (ICD-10-PCS; 2019-02-08)
PROC: 5A09357 Assistance with Respiratory Ventilation, Less than 24 Consecutive Hours, Continuous Positive Airway Pressure (ICD-10-PCS; 2019-02-09)
PROC: 5A09357 Assistance with Respiratory Ventilation, Less than 24 Consecutive Hours, Continuous Positive Airway Pressure (ICD-10-PCS; 2019-02-10)
PROC: 5A09457 Assistance with Respiratory Ventilation, 24-96 Consecutive Hours, Continuous Positive Airway Pressure (ICD-10-PCS; 2019-02-11)
DX: A41.50 Gram-negative sepsis, unspecified (principal); N17.0 Acute kidney failure with tubular necrosis; J18.9 Pneumonia, unspecified organism; J96.00 Acute respiratory failure, unspecified whether with hypoxia or hypercapnia; E87.0 Hyperosmolality and hypernatremia; J44.0 Chronic obstructive pulmonary disease with (acute) lower respiratory infection; N13.6 Pyonephrosis; Z68.42 Body mass index [BMI] 45.0-49.9, adult; R65.20 Severe sepsis without septic shock; D69.6 Thrombocytopenia, unspecified; D70.9 Neutropenia, unspecified; E03.9 Hypothyroidism, unspecified; E11.9 Type 2 diabetes mellitus without complications; E78.00 Pure hypercholesterolemia, unspecified; E78.5 Hyperlipidemia, unspecified; E86.0 Dehydration; E87.70 Fluid overload, unspecified; R62.7 Adult failure to thrive; I25.10 Atherosclerotic heart disease of native coronary artery without angina pectoris; I48.0 Paroxysmal atrial fibrillation; I95.81 Postprocedural hypotension; I95.89 Other hypotension; K43.2 Incisional hernia without obstruction or gangrene; M81.0 Age-related osteoporosis without current pathological fracture; I10 Essential (primary) hypertension; B96.20 Unspecified Escherichia coli [E. coli] as the cause of diseases classified elsewhere; Z51.5 Encounter for palliative care; Z66 Do not resuscitate; Z80.8 Family history of malignant neoplasm of other organs or systems; Z82.5 Family history of asthma and other chronic lower respiratory diseases; Z85.51 Personal history of malignant neoplasm of bladder; Z90.710 Acquired absence of both cervix and uterus; Z95.2 Presence of prosthetic heart valve; Z98.61 Coronary angioplasty status; Z88.5 Allergy status to narcotic agent; Z79.899 Other long term (current) drug therapy
CPT/HCPCS: 36415; 36569; 36600; 71045; 74177; 76000; 76775; 76937; 80048; 80053; 80202; 81001; 82570; 82803; 82810; 82948; 83036; 83605; 83735; 84100; 84132; 84134; 84145; 84295; 84300; 84443; 85018; 85025; 85610; 85730; 86022; 86885; 86900; 86901; 87040; 87070; 87077; 87081; 87088; 87186; 87207; 93005; 93306; 93970; 94002; 94003; 94640; 94660; 94760; 97110; 97161; 97530; 99291; A4618; C1758; C1769; C2617; G0378; J0696; J1170; J1644; J1720; J1815; J1940; J1956; J2001; J2060; J2185; J2212; J2250; J2270; J2405; J2543; J2704; J2765; J2930; J3010; J3370; J3475; J3480; J3490; J7050; J7070; J7120; P9045